=== PATIENT | female | born 1935 | race Caucasian/White ===

== ENCOUNTER → 2016-10-26 | Outpatient (CLI) | payer MEDICARE, BC ==
[2016-10-26 08:58] LABS: Appearance,Urine Clear (Clear); Bilirubin,Urine Negative (Negative); Glucose,Urine (UA) Negative (Negative); Ketones,Urine Negative (Negative); Leukocyte Esterase,Urine Negative (Negative); Nitrite,Urine Negative (Negative); PH, Urine 6.5 (5.0-8.0); Protein,Urine Trace (Negative); Specific Gravity,Urine 1.012 (1.001-1.035); UA Billing (MACRO vs. MICRO) CHEM; Urobilinogen,Urine <2.0 mg/dL (<2.0)
[2016-10-26 09:02] LABS: Basophils % (A) 1 %; CH 32.7; CHCM 33.6; Eosinophils # (A) 0.2 k/uL (0-0.7); Eosinophils % (A) 3 %; HCT 45.2 % (34.0-46.0); HDW 2.64; HGB 15.5 gm/dL (11.4-16.0); Luc # (Auto) 0.14; Luc % (Auto) 3; Lymphocytes # (A) 1.2 k/uL (1.0-4.8); Lymphocytes % (A) 22 %; MCH 33.5 pg (25.0-35.0); MCHC 34.2 g/dL (31.0-37.0); Mean Platelet Volume 6.7; Monocytes # (A) 0.4 k/uL (0-1.0); Monocytes % (A) 7 %; Neutrophils # (A) 3.6 k/uL (1.3-7.7); Neutrophils % (A) 66 %; RBC 4.61 m/uL (3.80-5.40); RDW 14.1 % (11.5-15.5); WBC 5.5 k/uL (3.8-10.6); WBC (Perox) 5.78
[2016-10-26 10:46] LABS: ALT 31 U/L (9-52); AST 20 U/L (14-36); Alkaline Phosphatase 70 U/L (38-126); Anion Gap 10 mmol/L; Blood Urea Nitrogen 21 mg/dL (7-17); Calcium 9.4 mg/dL (8.4-10.2); Carbon Dioxide 27 mmol/L (22-30); Chloride 101 mmol/L (98-107); Cholesterol 144 mg/dL (<200); Glucose 93 mg/dL (74-99); HDL Cholesterol 48 mg/dL (40-60); Non-African American GFR(MDRD) 53 (>60 ml/min/1.73 sqM); Potassium 4.6 mmol/L (3.5-5.1); Sodium 138 mmol/L (137-145); Total Bilirubin 0.7 mg/dL (0.2-1.3); Total Protein 6.9 g/dL (6.3-8.2)
[2016-10-26 11:32] LABS: Vitamin B12 774 pg/mL
== END | disposition home or self-care (01) ==
LOC: LABWHC1 08:33
PROVIDERS: ATTEND Internal Medicine
DX: E78.5 Hyperlipidemia, unspecified (principal); I10 Essential (primary) hypertension; R41.3 Other amnesia
CPT/HCPCS: 36415; 80053; 80061; 81003; 82607; 84443; 85025

== ENCOUNTER 2016-12-08 10:18 | Inpatient (IN) | payer MEDICARE, BC ==
[2016-12-08] MEDS ORDERED: DILTIAZEM 125 MG in SODIUM CHLORIDE 0.9% 100 ML IV ONE (10:50)
[2016-12-08] MEDS ORDERED: SODIUM CHLORIDE 0.9% 1,000 ML IV STA (10:50)
--- NOTE | 2016-12-08 10:53 | ED ---
General Adult HPI - General Chief complaint: Weakness Stated complaint: WEAKNESS, UNABLE TO EAT X 1 WEEK Time Seen by Provider: 12/08/16 10:32 Source: patient, family, RN notes reviewed Mode of arrival: wheelchair Limitations: physical limitation - History of Present Illness Initial comments: Patient is a pleasant 81-year-old female presenting to the emergency department with palpitations and generalized weakness. Symptoms have been present for several days. Patient is extremely fatigable and having difficulty walking more than a few feet. Patient has dyspnea with exertion only. No dyspnea at rest. No chest pain. Patient states she feels her heart is going rapidly. No isolated area of weakness. No confusion. Patient does have a history of palpitations once previously associated with atrial fibrillation years ago. - Related Data Home Medications Medication Instructions Recorded Confirmed Cholecalciferol [Vitamin D3] 1,000 unit PO DAILY 12/08/16 12/08/16 Lisinopril [Zestril] 20 mg PO DAILY 12/08/16 12/08/16 Pravastatin Sodium [Pravachol] 10 mg PO HS 12/08/16 12/08/16 Suvorexant [Belsomra] 15 mg PO Q48H 12/08/16 12/08/16 Venlafaxine HCl [Effexor XR] 75 mg PO DAILY 12/08/16 12/08/16 traZODone HCL 100 mg PO HS 12/08/16 12/08/16 Allergies Allergy/AdvReac Type Severity Reaction Status Date / Time No Known Allergies Allergy Verified 12/08/16 10:58 Review of Systems ROS Statement: Those systems with pertinent positive or pertinent negative responses have been documented in the HPI. ROS Other: All systems not noted in ROS Statement are negative. Constitutional: Denies: fever Eyes: Denies: eye pain ENT: Denies: ear pain Respiratory: Denies: cough Cardiovascular: Reports: palpitations. Denies: chest pain Endocrine: Reports: fatigue Gastrointestinal: Denies: abdominal pain Genitourinary: Denies: dysuria Musculoskeletal: Denies: back pain Skin: Denies: rash Neurological: Reports: weakness (Generalized) Past Medical History Past Medical History: Atrial Fibrillation, Hyperlipidemia, Hypertension History of Any Multi-Drug Resistant Organisms: None Reported Past Surgical History: Section, Hysterectomy Additional Past Surgical History / Comment(s): partial right foot amputation Past Psychological History: No Psychological Hx Reported Smoking Status: Former smoker Past Alcohol Use History: None Reported Past Drug Use History: None Reported General Exam Limitations: physical limitation General appearance: alert, in no apparent distress Head exam: Present: atraumatic Eye exam: Present: normal appearance, PERRL ENT exam: Present: normal oropharynx Neck exam: Present: normal inspection Respiratory exam: Present: normal lung sounds bilaterally Cardiovascular Exam: Present: tachycardia, irregular rhythm GI/Abdominal exam: Present: soft. Absent: tenderness Extremities exam: Present: normal inspection. Absent: pedal edema, calf tenderness Neurological exam: Present: alert, oriented X3, CN II-XII intact. Absent: motor sensory deficit Expanded Motor strength exam: RUE: 5, LUE: 5, RLE: 5, LLE: 5 Eye Response: (4) open spontaneously Motor Response: (6) obeys commands Verbal Response: (5) oriented Psychiatric exam: Present: normal affect, normal mood Skin exam: Present: normal color Course Vital Signs 12/08/16 12/08/16 12/08/16 10:22 10:38 11:00 Temperature 97.7 F Pulse Rate 124 H 124 H Pulse Rate [ 131 H Pulse Oximetery ] Respiratory 16 18 22 Rate Blood Pressure 118/85 100/74 O2 Sat by Pulse 98 92 L Oximetry 12/08/16 12/08/16 11:41 12:48 Temperature Pulse Rate 124 H 122 H Pulse Rate [ Pulse Oximetery ] Respiratory 18 18 Rate Blood Pressure 109/89 118/79 O2 Sat by Pulse 98 98 Oximetry EKG Findings - EKG Comments: EKG Findings:: A. fib with RVR, rate 117. QRS 80. QT 332. QTC 463. Poor R- wave progression. Nonspecific T waves. Medical Decision Making - Medical Decision Making Patient reevaluated and resting comfortably in bed. Patient has A. fib with RVR. Patient is on Cardizem drip. Heart rate remains between 101 and 1:15. Chest x-ray concerning for some congestive heart failure. BNP and echo will be added. Case was discussed with Dr. Borrego, who will admit for Dr. Carlos. He is covering for Dr. marquez. - Lab Data Result diagrams: 12/08/16 09:59 12/08/16 09:59 Lab Results 12/08/16 12/08/16 12/08/16 Range/Units 09:59 09:59 09:59 WBC 6.2 (3.8-10.6) k/uL RBC 4.53 (3.80-5.40) m/uL Hgb 14.8 (11.4-16.0) gm/dL Hct 47.1 H (34.0-46.0) % MCV 103.8 H D (80.0-100.0) fL MCH 32.7 (25.0-35.0) pg MCHC 31.5 (31.0-37.0) g/dL RDW 15.6 H (11.5-15.5) % Plt Count 247 (150-450) k/uL Neutrophils % 74 % Lymphocytes % 17 % Monocytes % 6 % Eosinophils % 1 % Basophils % 0 % Neutrophils # 4.6 (1.3-7.7) k/uL Lymphocytes # 1.1 (1.0-4.8) k/uL Monocytes # 0.4 (0-1.0) k/uL Eosinophils # 0.1 (0-0.7) k/uL Basophils # 0.0 (0-0.2) k/uL Macrocytosis Moderate PT (9.0-12.0) sec INR (<1.2) APTT (22.0-30.0) sec Sodium 136 L (137-145) mmol/L Potassium 4.7 (3.5-5.1) mmol/L Chloride 102 (98-107) mmol/L Carbon Dioxide 23 (22-30) mmol/L Anion Gap 11 mmol/L BUN 26 H (7-17) mg/dL Creatinine 0.96 (0.52-1.04) mg/dL Est GFR (MDRD) Af Amer >60 (>60 ml/min/1.73 sqM) Est GFR (MDRD) Non-Af 56 (>60 ml/min/1.73 sqM) Glucose 95 (74-99) mg/dL Calcium 9.2 (8.4-10.2) mg/dL Phosphorus 3.8 (2.5-4.5) mg/dL Magnesium 2.0 (1.6-2.3) mg/dL Total Bilirubin 0.9 (0.2-1.3) mg/dL AST 24 (14-36) U/L ALT 28 (9-52) U/L Alkaline Phosphatase 76 (38-126) U/L Total Creatine Kinase 39 (30-135) U/L CK-MB (CK-2) 1.5 (0.0-2.4) ng/mL CK-MB (CK-2) Rel Index 3.8 Troponin I 0.042 H* (0.000-0.034) ng/mL Total Protein 6.7 (6.3-8.2) g/dL Albumin 3.8 (3.5-5.0) g/dL TSH 1.260 (0.465-4.680) mIU/L Free T4 2.27 H (0.78-2.19) ng/dL Free T3 pg/mL 3.9 (2.8-5.3) pg/ml 12/08/16 Range/Units 09:59 WBC (3.8-10.6) k/uL RBC (3.80-5.40) m/uL Hgb (11.4-16.0) gm/dL Hct (34.0-46.0) % MCV (80.0-100.0) fL MCH (25.0-35.0) pg MCHC (31.0-37.0) g/dL RDW (11.5-15.5) % Plt Count (150-450) k/uL Neutrophils % % Lymphocytes % % Monocytes % % Eosinophils % % Basophils % % Neutrophils # (1.3-7.7) k/uL Lymphocytes # (1.0-4.8) k/uL Monocytes # (0-1.0) k/uL Eosinophils # (0-0.7) k/uL Basophils # (0-0.2) k/uL Macrocytosis PT 12.0 (9.0-12.0) sec INR 1.2 H (<1.2) APTT 22.5 (22.0-30.0) sec Sodium (137-145) mmol/L Potassium (3.5-5.1) mmol/L Chloride (98-107) mmol/L Carbon Dioxide (22-30) mmol/L Anion Gap mmol/L BUN (7-17) mg/dL Creatinine (0.52-1.04) mg/dL Est GFR (MDRD) Af Amer (>60 ml/min/1.73 sqM) Est GFR (MDRD) Non-Af (>60 ml/min/1.73 sqM) Glucose (74-99) mg/dL Calcium (8.4-10.2) mg/dL Phosphorus (2.5-4.5) mg/dL Magnesium (1.6-2.3) mg/dL Total Bilirubin (0.2-1.3) mg/dL AST (14-36) U/L ALT (9-52) U/L Alkaline Phosphatase (38-126) U/L Total Creatine Kinase (30-135) U/L CK-MB (CK-2) (0.0-2.4) ng/mL CK-MB (CK-2) Rel Index Troponin I (0.000-0.034) ng/mL Total Protein (6.3-8.2) g/dL Albumin (3.5-5.0) g/dL TSH (0.465-4.680) mIU/L Free T4 (0.78-2.19) ng/dL Free T3 pg/mL (2.8-5.3) pg/ml - Radiology Data Radiology results: image reviewed (Computed tomography scan of brain shows no acute abnormality. Atrophy. Chest x-ray shows vascular congestion.) Critical Care Time Critical Care Time: Yes Total Critical Care Time: 32 Disposition Clinical Impression: Atrial fibrillation with RVR, CHF (congestive heart failure) Disposition: ADMITTED IP TO THIS HOSP Referrals: Fortino Pena MD [Primary Care Provider] - 1-2 days Decision Time: 13:05
[2016-12-08 11:11] LABS: Basophils % (A) 0 %; CH 33.8; CHCM 32.9; Eosinophils # (A) 0.1 k/uL (0-0.7); Eosinophils % (A) 1 %; HCT 47.1 % (34.0-46.0); HDW 2.98; HGB 14.8 gm/dL (11.4-16.0); Luc # (Auto) 0.08; Luc % (Auto) 1; Lymphocytes # (A) 1.1 k/uL (1.0-4.8); Lymphocytes % (A) 17 %; MCH 32.7 pg (25.0-35.0); MCHC 31.5 g/dL (31.0-37.0); Macrocytosis Moderate; Mean Platelet Volume 7.7; Monocytes # (A) 0.4 k/uL (0-1.0); Monocytes % (A) 6 %; Neutrophils # (A) 4.6 k/uL (1.3-7.7); Neutrophils % (A) 74 %; RBC 4.53 m/uL (3.80-5.40); RDW 15.6 % (11.5-15.5); WBC 6.2 k/uL (3.8-10.6); WBC (Perox) 6.18
[2016-12-08 11:14] LABS: MCV 103.8 fL (80.0-100.0)
[2016-12-08 11:47] LABS: INR 1.2 (<1.2)
[2016-12-08 11:50] LABS: ALT 28 U/L (9-52); AST 24 U/L (14-36); Alkaline Phosphatase 76 U/L (38-126); Anion Gap 11 mmol/L; Blood Urea Nitrogen 26 mg/dL (7-17); Calcium 9.2 mg/dL (8.4-10.2); Carbon Dioxide 23 mmol/L (22-30); Chloride 102 mmol/L (98-107); Glucose 95 mg/dL (74-99); Non-African American GFR(MDRD) 56 (>60 ml/min/1.73 sqM); Phosphorous 3.8 mg/dL (2.5-4.5); Potassium 4.7 mmol/L (3.5-5.1); Sodium 136 mmol/L (137-145); Total Bilirubin 0.9 mg/dL (0.2-1.3); Total Protein 6.7 g/dL (6.3-8.2)
[2016-12-08 11:51] LABS: Creatine Kinase MB 1.5 ng/mL (0.0-2.4)
--- NOTE | 2016-12-08 11:53 | CT ---
EXAMINATION TYPE: CT brain wo con DATE OF EXAM: 12/08/2016 COMPARISON: NONE HISTORY: Weakness CT DLP: 1153 mGycm Automated exposure control for dose reduction was used. Helical imaging through the brain FINDINGS: There are cerebral vascular calcifications present. No hemorrhage or hydrocephalus. Cortical atrophy is likely age-related. Periventricular white matter shows patchy low attenuation. Calvarium is intact . Orbits are symmetric. Paranasal sinuses and mastoid air cells as visualized are normal. IMPRESSION: NO ACUTE ABNORMALITY. AGE-RELATED CHANGES OF ATROPHY AND PROBABLE CHRONIC SMALL VESSEL ISCHEMIA.
[2016-12-08 11:55] LABS: Partial Thromboplastin Time 22.5 sec (22.0-30.0)
[2016-12-08 11:59] LABS: Troponin I 0.042 ng/mL (0.000-0.034)
--- NOTE | 2016-12-08 12:54 | XR ---
EXAMINATION TYPE: XR chest 2V DATE OF EXAM: 12/08/2016 COMPARISON: 07/19/2011 HISTORY: Weakness, decreased appetite and atrial fibrillation. TECHNIQUE: Frontal and lateral views of the chest are obtained. FINDINGS: There is a small left and trace right pleural effusion with associated bibasilar airspace disease and linear left midlung atelectasis in combination with mild pulmonary vascular congestion. P ossible right upper lung surgical sutures are seen. Heart is enlarged and there is engorgement of the superior vena cava/azygos junction indicating volume overload. IMPRESSION: Nuclear vascular congestion, trace right pleural effusion, small left pleural effusion a nd progressed cardiomegaly indicative of underlying decompensated congestive heart failure.
[2016-12-08] MEDS ORDERED: ASPIRIN 325 MG TAB PO STA (13:05)
[2016-12-08] MEDS ORDERED: HEPARIN SODIUM,PORCINE 5,000 UNIT/ML 1 ML VIAL IV ONE (13:07)
[2016-12-08] MEDS ORDERED: HEPARIN SODIUM,PORCINE 5,000 UNIT/ML 1 ML VIAL IV PRN (13:07)
[2016-12-08] MEDS ORDERED: HEPARIN SODIUM,PORCINE/D5W PMX 25,000 UNIT in DEXTROSE/WATER 1 500ML.BAG IV SCH (13:15)
[2016-12-08] MEDS: FUROSEMIDE 10 MG/ML 4 ML VIAL IV SCH ×2 (13:31→23:42)
[2016-12-08 13:32] LABS: Appearance,Urine Clear (Clear); Bilirubin,Urine Negative (Negative); Glucose,Urine (UA) Negative (Negative); Ketones,Urine Trace (Negative); Leukocyte Esterase,Urine Trace (Negative); Mucus,Urine Rare /hpf; Nitrite,Urine Negative (Negative); PH, Urine 5.5 (5.0-8.0); Particle Count 2641; Protein,Urine Trace (Negative); RBC,Urine 3 /hpf (0-5); Specific Gravity,Urine 1.023 (1.001-1.035); Squamous Epithelial Cell,Urine 1 /hpf (0-4); UA Billing (MACRO vs. MICRO) MICRO; WBC,Urine 5 /hpf (0-5)
[2016-12-08 14:47] VITALS: BMI 27.2
[2016-12-08] MEDS ORDERED: DEXTROSE 5% IN WATER 100 ML with AMIODARONE 150 MG IV ONE (16:45)
--- NOTE | 2016-12-08 16:46 | ECHOF ---
Referral Reason:Heart Failure MEASUREMENTS -------- HEIGHT: 167.6 cm WEIGHT: 76.7 kg BP: 118/79 IVSd: 1.4 cm (0.6 - 1.1) LVIDd: 4.4 cm (3.9 - 5.3) LVPWd: 1.2 cm (0.6 - 1.1) LVIDs: 3.9 cm LA Diam: 3.8 cm (2.7 - 3.8) RVIDd: 3.0 cm (< 3.3) LAESV Index (A-L): 23.37 ml/m Ao Diam: 3.2 cm (2.0 - 3.7) AV Cusp: 1.8 cm (1.5 - 2.6) EPSS: 1.3 cm RAP: 15.00 mmHg RVSP: 53.88 mmHg MV EF SLOPE: 86.98 mm/s (70 - 150) MV EXCURSION: 16.96 mm (> 18.000) FINDINGS -------- Atrial fibrillation. This was a technically good study. The left ventricular size is normal. There is moderate concentric left ventricular hypertrophy. Overall left ventricular systolic function is severely impaired with, an EF between 20 - 25 %. The right ventricle is normal in size. Normal LA size by volume 22+/-6 ml/m2. The right atrium is normal in size. There is mild aortic valve sclerosis. There is mild aortic regurgitation. The mitral valve leaflets are mildly thickened. Mild mitral annular calcification present. Moderate mitral regurgitation is present. Moderate to severe tricuspid regurgitation present. There is moderate pulmonary hypertension. The right ventricular systolic pressure, as measured by Doppler, is 53.88mmHg. The pulmonic valve was not well visualized. The aortic root size is normal. The inferior vena cava is dilated with no significant inspiratory collapse which is consistent estimated right atrial pressure of >15 mmHg. There is no pericardial effusion. Small Pleural Effusion. CONCLUSIONS -------- 1. Atrial fibrillation. 2. There is mild aortic regurgitation. 3. The mitral valve leaflets are mildly thickened. 4. Mild mitral annular calcification present. 5. Moderate mitral regurgitation is present. 6. Moderate to severe tricuspid regurgitation present. 7. There is moderate pulmonary hypertension. 8. The right ventricular systolic pressure, as measured by Doppler, is 53.88mmHg. 9. The pulmonic valve was not well visualized. 10. The aortic root size is normal. 11. The inferior vena cava is dilated with no significant inspiratory collapse which is consistent estimated right atrial pressure of >15 mmHg. 12. This was a technically good study. 13. There is no pericardial effusion. 14. Small Pleural Effusion. 15. The left ventricular size is normal. 16. There is moderate concentric left ventricular hypertrophy. 17. Overall left ventricular systolic function is severely impaired with, an EF between 20 - 25 %. 18. The right ventricle is normal in size. 19. Normal LA size by volume 22+/-6 ml/m2. 20. The right atrium is normal in size. 21. There is mild aortic valve sclerosis. CURB WORKER: Britney Esteban RDCS
[2016-12-08] MEDS: AMIODARONE 450 MG in DEXTROSE 5% IN WATER 250 ML IV SCH ×2 (17:10)
[2016-12-08] MEDS: NITROGLYCERIN OINT 1 INCH/GM PACKET TOPICAL SCH ×2 (17:11→20:31)
[2016-12-08] MEDS ORDERED: FUROSEMIDE 10 MG/ML 4 ML VIAL IV STA (17:51)
[2016-12-08] MEDS ORDERED: MORPHINE SULFATE 2 MG/ML SYRINGE IVP STA (17:51)
[2016-12-08] MEDS: APIXABAN 5 MG TAB PO SCH (20:30)
[2016-12-08] MEDS: PRAVASTATIN SODIUM 20 MG TAB PO SCH (20:30)
[2016-12-08] MEDS: traZODone HCL 100 MG TAB PO SCH (20:31)
--- NOTE | 2016-12-08 21:59 | HP ---
HISTORY AND PHYSICAL CHIEF COMPLAINT: Weakness and shortness of breath. HISTORY OF PRESENT ILLNESS: This 81-year-old woman with a past history of multiple medical problems, including chest pain, history of hypertension, hyperlipidemia, history of hypothyroidism, bladder surgery, anxiety, depression being followed by Dr. Pena in the outpatient setting was admitted to [place] with multiple complex medical issues, including weakness and tiredness. Patient unable to the eat. Apparently, patient is fatigued. The patient was found to have features of atrial fibrillation as well as CHF on admission. Patient admitted for further evaluation. Amiodarone drip was initiated at this time. The patient is slightly drowsy, unable to give a coherent history. Most of the history is taken from my discussion with the staff as well as review of the chart at this time. PAST MEDICAL HISTORY: History of chest pain, history hypertension, hyperlipidemia, hypothyroidism, history irregular heartbeat, anxiety, depression. MEDICATIONS PRIOR TO ADMISSION: Include: 1. Effexor XR 75 mg p.o. daily .. 2. Belsomra 50 mg q.4 to 8 hours. 3. Trazodone 100 mg q.h.s. 4. Pravachol 10 mg q.h.s. 5. Zestril 20 mg daily. 6. Vitamin D3 1000 daily. ALLERGIES: None. FAMILY HISTORY: History of breast cancer in the family. SOCIAL HISTORY: Previous history of smoking. No history of current smoking or alcohol intake. REVIEW OF SYSTEMS: ENT: No diminished hearing, diminished vision. CARDIOVASCULAR: As mentioned earlier. RESPIRATORY: As mentioned earlier. GI: No nausea, vomiting. : No dysuria. NERVOUS: No numbness. Generalized weakness. ALLERGY/IMMUNOLOGY: No asthma. MUSCULOSKELETAL: As mentioned earlier. HEMATOLOGY/ONCOLOGY: No history of anemia. ENDOCRINE: As mentioned earlier. CONSTITUTIONAL: As mentioned earlier. DERMATOLOGY: Negative. RHEUMATOLOGY: Negative. PSYCHIATRY: As mentioned earlier. PHYSICAL EXAM: The pulse is 102, blood pressure 118/80, respirations 18, temp is normal, pulse ox 98% on 3L. HEENT: Conjunctivae normal. Oral mucosa moist. NECK: No jugular venous distention. No carotid bruits. No lymph node enlargement. CARDIOVASCULAR: S1, S2 muffled, irregular. RESPIRATORY: Breath sounds diminished in the bases. Bilateral scattered rhonchi and crackles. ABDOMEN: Soft, nontender. No mass palpable. LEGS: No edema. No swelling. NERVOUS SYSTEM: Higher functions as mentioned earlier. Moves all 4 limbs. No focal motor or sensory deficits. LYMPHATIC: No lymphadenopathy in neck or axillae. SKIN: No ulcers, rash or bleeding. LAB STUDIES: MCV 103.8, INR is 1.2. Sodium 136. The chest x-ray: Evidence of pleural effusion and CHF. ASSESSMENT: 1. Congestive heart failure acute exacerbation, ejection fraction 20% to 25% with acute on chronic systolic dysfunction. 2. Atrial fibrillation with a fast ventricular rate. 3. Hypertension. 4. Hyperlipidemia. 5. History of atrial fibrillation. 6. History of cystitis. 7. History of cholecystectomy. 8. Anxiety, depression. 9. Troponin indeterminate at 0.042. 10.NT-proBNP 7620. RECOMMENDATIONS AND DISCUSSION: In this 81-year-old woman who presented with multiple complex medical issues, will monitor the patient closely. Continue with the current management and continue symptomatic treatment. Will initiate Lasix, IV heparin drip. Cardiology consultation. Two-D echo reviewed. The patient is started on Eliquis already. Otherwise, I would also recommend the patient is also on amiodarone drip. Symptomatic treatment will be provided. The patient also had a sick euthyroid syndrome. We will continue to monitor. Prognosis guarded because of multiple complex medical issues. Discussed with the patient. Further recommendations to follow. A copy of this dictation will be forwarded to Dr. Pena, who is the primary physician. I would also recommend PT/OT evaluation once the patient is stabilized. Home medications will be continued. MMODL / IJN: [id number] /
[2016-12-09] MEDS: AMIODARONE 450 MG in DEXTROSE 5% IN WATER 250 ML IV SCH ×6 (00:24→16:12)
[2016-12-09 03:17] LABS: Basophils % (A) 1 %; CH 32.7; CHCM 32.3; Eosinophils # (A) 0.1 k/uL (0-0.7); Eosinophils % (A) 1 %; HCT 41.3 % (34.0-46.0); HDW 2.99; HGB 13.2 gm/dL (11.4-16.0); Hypochromasia Slight; Luc # (Auto) 0.12; Luc % (Auto) 2; Lymphocytes # (A) 1.3 k/uL (1.0-4.8); Lymphocytes % (A) 22 %; MCH 32.7 pg (25.0-35.0); MCHC 32.1 g/dL (31.0-37.0); Macrocytosis Slight; Mean Platelet Volume 7.2; Monocytes # (A) 0.4 k/uL (0-1.0); Monocytes % (A) 6 %; Neutrophils # (A) 4.1 k/uL (1.3-7.7); Neutrophils % (A) 68 %; RBC 4.04 m/uL (3.80-5.40); RDW 14.7 % (11.5-15.5)
[2016-12-09] MEDS: CARVEDILOL 6.25 MG TAB PO SCH ×2 (06:33→17:11)
[2016-12-09] MEDS: ONDANSETRON 4 MG/2 ML VIAL IVP PRN ×3 (08:44→21:04)
[2016-12-09] MEDS ORDERED: LISINOPRIL 10 MG TAB PO SCH (09:00)
[2016-12-09] MEDS: NITROGLYCERIN OINT 1 INCH/GM PACKET TOPICAL SCH ×5 (09:17→21:07)
[2016-12-09] MEDS: CHOLECALCIFEROL 1,000 UNIT TAB PO SCH (09:18)
[2016-12-09] MEDS: VENLAFAXINE HCL ER 75 MG CAP PO SCH (09:18)
[2016-12-09] MEDS: APIXABAN 5 MG TAB PO SCH ×2 (09:18→21:05)
[2016-12-09] MEDS: SPIRONOLACTONE 25 MG TAB PO SCH (12:55)
[2016-12-09] MEDS ORDERED: ASPIRIN 325 MG TAB PO SCH (13:06)
--- NOTE | 2016-12-09 13:36 | CONS ---
CONSULTATION Mrs. Luo is and 81-year-old female, who is seen for cardiac evaluation. Patient's medical records were reviewed. This patient has a history of hypertension, hyperlipidemia, and hypothyroidism and has been followed by Dr. Pena as an outpatient. The patient came to the hospital with a complaint of shortness of breath and weakness, unable to eat for last few days. She did not had any fever or chills. The patient was found to be in congestive heart failure and atrial fibrillation with a rapid ventricular response. There is no definite prior history of myocardial infarction or atrial fibrillation. The patient has been physically and functionally independent for prior to the few days coming to the hospital. There is no previous history of congestive cardiac failure. PAST MEDICAL HISTORY: Past medical history includes history of hypertension, hyperlipidemia, anxiety. HOME MEDICATIONS: Include: 1. Effexor. 2. Trazodone. 3. Pravachol 10 mg. 4. Zestril 20 mg daily. FAMILY HISTORY: Unremarkable. REVIEW OF SYMPTOMS: Review of the system is otherwise unremarkable. PHYSICAL EXAMINATION: At present reveals 81-year-old female, who is still mildly short of breath and feeling nauseated. Patient is afebrile. Oxygen saturation is 95%. The patient's blood pressure is 100/60 mmHg. HEENT examination is negative. NECK: Supple. Jugular venous pressure is elevated. Both the carotid pulses are felt. There is no bruit. Chest is symmetrical. Heart the PMI is not felt. First and second heart sounds are normal. Lungs examination reveals few basal rales. ABDOMEN: Soft. Extremities there is a 1 to 2+ edema. EKG initially showed atrial fibrillation with moderately rapid ventricular response. Chest x-ray was suggestive of congestive cardiac failure. The patient's BNP level was 7620. Patient's free T4 was 2.27. The TSH was 1.260. The patient's echocardiogram reveals severe degree of global hypokinesia with severely impaired left ventricular systolic function. IMPRESSION: This patient has presented with a congestive cardiac failure. Patient has atrial fibrillation with moderately rapid ventricular response. Echocardiogram reveals a severely impaired left ventricular systolic function. RECOMMENDATIONS: At present, the patient was started on IV amiodarone drip to control the ventricular rate. We will continue IV Lasix 40 mg IV q.12h. The patient has been diuresing well. We will hold off the Zestril for next 36 hours and then start the patient on Entresto. The patient's overall prognosis is guarded. Patient is started on apixaban 5 mg b.i.d. Thank you for the consultation. CARLITOS / RANJIT: [id number] /
[2016-12-09] MEDS: FUROSEMIDE 10 MG/ML 4 ML VIAL IV SCH (15:16)
[2016-12-09] MEDS: AMIODARONE 200 MG TAB PO SCH ×2 (17:11→21:07)
--- NOTE | 2016-12-09 17:39 | PN ---
PROGRESS NOTE DATE OF SERVICE: 12/09/2016 This 81-year-old woman is admitted with weakness and shortness of breath, had CHF and as well as atrial fibrillation. The patient's ejection fraction is very low possibly indicating cardiomyopathy as well. Patient is on IV Lasix. The patient also on Amiodarone. PAST MEDICAL HISTORY: Reviewed. REVIEW OF SYSTEMS: CARDIOVASCULAR: No angina. RESPIRATORY: As mentioned earlier. GI: No nausea. : No dysuria. NERVOUS SYSTEM: No numbness weakness. CURRENT MEDICATIONS: Reviewed and include 1. Amiodarone 200 mg t.i.d. 2. Eliquis 5 mg p.o. b.i.d. 3. Coreg. 4. Lasix. 5. Nitro-Bid. 6. Pravachol. 7. Aldactone. 8. Desyrel. 9. Effexor. PHYSICAL EXAM: Patient is alert, oriented x2. Pulse 95, blood pressure 95/67, respiration 18, temperature 97.4, pulse ox 95% on 3 L. HEENT: Conjunctivae normal. Oral mucosa moist. NECK: No jugular venous distention. No carotid bruit. No lymph node enlargement. CARDIOVASCULAR: S1, S2. No S3, no S4. RESPIRATORY: Breath sounds diminished in the bases. A few scattered rhonchi and crackles. Expiratory wheezing also present. ABDOMEN: Soft, obese, nontender. LEGS: Minimal bilateral leg edema. NERVOUS SYSTEM: Higher functions as mentioned earlier. Moves all four limbs. No focal deficits. LYMPHATICS: No lymphadenopathy in the neck, axillae or groin. SKIN: No ulcer, rash or bleeding. LAB: WBC 6.6, hemoglobin 13.2, MCV 102, troponin 0.041. UA noted. ASSESSMENT: 1. Congestive heart failure acute exacerbation with acute on chronic systolic dysfunction, ejection fraction 20 to 25% with possible cardiomyopathy. 2. Atrial fibrillation with fast ventricular rate. 3. Hypertension. 4. Hyperlipidemia. 5. History of atrial fibrillation. 6. History of cystitis. 7. History cholecystitis. 8. Anxiety and depression. 9. Troponin indeterminate 0.042. 10.Elevated NT proBNP. RECOMMENDATIONS AND DISCUSSION: In this 81-year-old woman who presented with multiple complex medical issues, will monitor the patient closely. Continue the current medications, continue current medical treatment, continue with Amiodarone and Eliquis as initiated. I would also recommend increased ambulation along with PT/OT also. The prognosis is guarded because of multiple complex medical issues and further recommendations to follow. See orders for details. MMODL / IJN: [id number] / SANDRA
[2016-12-09] MEDS ORDERED: Acetaminophen-Codeine 300-30mg TAB PO PRN (18:31)
[2016-12-09] MEDS ORDERED: ACETAMINOPHEN TAB 325 MG TAB PO PRN (18:31)
[2016-12-09] MEDS: traZODone HCL 100 MG TAB PO SCH (21:06)
[2016-12-09] MEDS: PRAVASTATIN SODIUM 20 MG TAB PO SCH (21:06)
[2016-12-09] MEDS: PANTOPRAZOLE 40 MG/10 ML VIAL IVP SCH (21:09)
[2016-12-10] MEDS: FUROSEMIDE 10 MG/ML 4 ML VIAL IV SCH ×2 (01:33→12:33)
[2016-12-10 06:01] LABS: Basophils % (A) 1 %; CH 34.1; CHCM 33.1; Eosinophils # (A) 0.1 k/uL (0-0.7); Eosinophils % (A) 2 %; HDW 2.97; HGB 13.5 gm/dL (11.4-16.0); Luc # (Auto) 0.08; Luc % (Auto) 1; Lymphocytes # (A) 1.2 k/uL (1.0-4.8); Lymphocytes % (A) 20 %; MCH 32.8 pg (25.0-35.0); MCHC 31.5 g/dL (31.0-37.0); Macrocytosis Moderate; Mean Platelet Volume 7.5; Monocytes # (A) 0.4 k/uL (0-1.0); Monocytes % (A) 7 %; Neutrophils # (A) 4.2 k/uL (1.3-7.7); Neutrophils % (A) 69 %; RBC 4.13 m/uL (3.80-5.40); RDW 15.6 % (11.5-15.5); WBC (Perox) 6.82
[2016-12-10] MEDS: CARVEDILOL 6.25 MG TAB PO SCH ×2 (06:42→17:34)
--- NOTE | 2016-12-10 07:40 | XR ---
EXAMINATION TYPE: XR chest 1V DATE OF EXAM: 12/10/2016 HISTORY: chf. REFERENCE: Previous study dated 12/08/2016. FINDINGS: The heart is enlarged. Vascular congestion has improved. Interstitial change has improved. There continue to be small, bilateral effusions. IMPRESSION: IMPROVING CHANGES OF CONGESTIVE HEART FAILURE.
[2016-12-10] MEDS: NITROGLYCERIN OINT 1 INCH/GM PACKET TOPICAL SCH ×4 (08:15→22:52)
[2016-12-10] MEDS: APIXABAN 5 MG TAB PO SCH ×2 (08:15→20:40)
[2016-12-10] MEDS: AMIODARONE 200 MG TAB PO SCH ×3 (08:15→22:52)
[2016-12-10] MEDS: VENLAFAXINE HCL ER 75 MG CAP PO SCH (08:16)
[2016-12-10] MEDS: CHOLECALCIFEROL 1,000 UNIT TAB PO SCH (08:16)
[2016-12-10] MEDS: PANTOPRAZOLE 40 MG/10 ML VIAL IVP SCH ×2 (08:16→20:40)
[2016-12-10] MEDS: SPIRONOLACTONE 25 MG TAB PO SCH (08:16)
[2016-12-10 09:03] LABS: Calcium 8.5 mg/dL (8.4-10.2)
--- NOTE | 2016-12-10 14:31 | PN ---
PROGRESS NOTE This patient was admitted with atrial fibrillation and rapid ventricular response. She is feeling better. She is feeling tired but denies any orthopnea or PND. PHYSICAL EXAMINATION: Patient is afebrile. Heart rate is 90 per minute, respirations are not labored. Blood pressure is 110/78 mmHg. First and second heart sounds are normal. Lungs are fairly clear to auscultation and percussion. Chest x-ray shows improvement in the congestive heart failure. Patient's creatinine is increased to 1.69. We will DC IV Lasix 40 mg b.i.d. today and then start 20 mg IV b.i.d. from tomorrow. Once the patient's creatinine is stabilized, we will start the patient on Entresto. MMODL / IJN: [id number] /
--- NOTE | 2016-12-10 15:37 | PN ---
PROGRESS NOTE DATE OF SERVICE: 12/10/2016. INTERVAL HISTORY: This 81-year-old woman who was admitted with CHF acute exacerbation with acute on chronic systolic dysfunction, is being closely monitored. The patient has complaints of tiredness and weakness. No chest pain. No palpitations. No fever. The most recent chest x-ray done today showed improving changes of heart failure. EXAM: Alert, oriented x3. Pulse is 97, blood pressure 107/76, respiratory 20, temperature 96.4, pulse ox 99% on 3 L. HEENT: Conjunctivae normal. NECK: No jugular venous distention. Cardiovascular: S1, S2 muffled. Respiratory: Breath sounds diminished in the bases. A few scattered rhonchi and crackles. Abdomen is soft, nontender. Legs: No edema. Central nervous system: No focal deficits. LABS: Hemoglobin 13.5, sodium 135, troponin noted. ASSESSMENT: 1. Congestive heart failure acute exacerbation with acute on chronic systolic dysfunction, ejection fraction 20 to 25% with possible cardiomyopathy. 2. Atrial fibrillation with fast ventricular rate. Present on admission. 3. Hypertension. 4. Hyperlipidemia. 5. History of atrial fibrillation. 6. History of cystitis. 7. History of cholecystitis. 8. History of anxiety and depression. 9. Troponin indeterminate at 0.042. 10.Elevated NT proBNP. RECOMMENDATIONS AND DISCUSSION: Recommend to continue current medications. Management. Continue the diuretics. Monitor closely. Closely follow with Cardiology. The patient is also on amiodarone for rate control t.i.d., Eliquis 5 mg p.o. b.i.d. has been started. See orders for further details. Guarded prognosis. Further recommendations to follow. MMODL / IJN: [id number] /
[2016-12-10] MEDS: ONDANSETRON 4 MG/2 ML VIAL IVP PRN (19:28)
[2016-12-10] MEDS: PRAVASTATIN SODIUM 20 MG TAB PO SCH (20:38)
[2016-12-10] MEDS: traZODone HCL 100 MG TAB PO SCH (20:40)
[2016-12-11] MEDS: AMIODARONE 200 MG TAB PO SCH ×4 (00:17→21:29)
[2016-12-11] MEDS: ONDANSETRON 4 MG/2 ML VIAL IVP PRN ×2 (06:29→17:54)
[2016-12-11] MEDS: CARVEDILOL 6.25 MG TAB PO SCH ×2 (07:07→16:02)
[2016-12-11 08:07] LABS: Basophils % (A) 1 %; CH 32.6; CHCM 32.5; Eosinophils # (A) 0.2 k/uL (0-0.7); Eosinophils % (A) 3 %; HCT 41.4 % (34.0-46.0); HDW 2.98; HGB 13.2 gm/dL (11.4-16.0); Hypochromasia Slight; Luc # (Auto) 0.15; Luc % (Auto) 3; Lymphocytes # (A) 1.3 k/uL (1.0-4.8); Lymphocytes % (A) 22 %; MCH 32.2 pg (25.0-35.0); MCHC 31.8 g/dL (31.0-37.0); MCV 101.1 fL (80.0-100.0); Macrocytosis Slight; Mean Platelet Volume 7.7; Monocytes # (A) 0.4 k/uL (0-1.0); Monocytes % (A) 7 %; Neutrophils # (A) 3.9 k/uL (1.3-7.7); Neutrophils % (A) 65 %; RDW 14.6 % (11.5-15.5); WBC 5.9 k/uL (3.8-10.6); WBC (Perox) 5.98
[2016-12-11] MEDS: SPIRONOLACTONE 25 MG TAB PO SCH (08:12)
[2016-12-11] MEDS: PANTOPRAZOLE 40 MG/10 ML VIAL IVP SCH (08:12)
[2016-12-11] MEDS: VENLAFAXINE HCL ER 75 MG CAP PO SCH (08:12)
[2016-12-11] MEDS: APIXABAN 5 MG TAB PO SCH ×2 (08:12→20:36)
[2016-12-11] MEDS: NITROGLYCERIN OINT 1 INCH/GM PACKET TOPICAL SCH ×2 (08:12→11:23)
[2016-12-11] MEDS: CHOLECALCIFEROL 1,000 UNIT TAB PO SCH (08:13)
[2016-12-11] MEDS ORDERED: METOCLOPRAMIDE 5 MG/ML 2 ML VIAL ONE (10:24)
[2016-12-11] MEDS ORDERED: METOCLOPRAMIDE 5 MG/ML 2 ML VIAL IVP STA (11:03)
[2016-12-11 12:40] LABS: Calcium 8.7 mg/dL (8.4-10.2); Potassium 4.3 mmol/L (3.5-5.1)
--- NOTE | 2016-12-11 14:34 | PN ---
PROGRESS NOTE Mrs. Luo is an 81-year-old female, who was admitted with atrial fibrillation, RVR. Patient has a severely impaired left ventricular systolic function. Patient has been started on amiodarone. She is feeling slightly nauseated which could be secondary to amiodarone but she is feeling better after the Reglan. She denies any shortness of breath. Patient is afebrile, heart rate is in the range of 80 to 90 per minute, respirations are not labored. Blood pressure is 111/75 mmHg. There is no evidence of any leg edema. The chest x-ray done showed improving changes of the congestive cardiac failure. Patient's creatinine is increased up to 2.02. We will discontinue the IV Lasix and follow the creatinine. MMODL / IJN: [id number] /
--- NOTE | 2016-12-11 15:37 | P.PN ---
Progress Note - Text Progress Note Date: 12/11/16 DATE OF SERVICE: 12/11/2016 PRESENTING COMPLAINT: weakness and shortness of breath HISTORY OF PRESENT ILLNESS: 81-year-old female presented with weakness and shortness of breath, unable to eat fatigued diagnostic testing revealed atrial fibrillation, as well as CHF. Admitted for the same. Cardiology consulted, echocardiogram completed,IV amiodarone, Lasix, entresto initiated. INTERVAL HISTORY: 12/11/2016: patient seen in follow-up, lying in bed appears pale, complaining of nausea. Amiodarone initiated today and likely nauseated because of that. Remains in A. fib rate controlled. Chest x-ray shows improving changes of congestive heart failure. Patient's appetite low today. Last BM prior to admission. anticoagulation needs will be met with Apixaban 5 mg twice a day. REVIEW OF SYSTEMS: Done for constitutional ,cardiovascular, GI, pulmonary with relevant findings as above. CURRENT MEDICATIONS Tylenol No. 3,amiodarone 200 mg by mouth 3 times a day, Apixaban 5 mg by mouth twice a day, Coreg 6.25 mg by mouth twice a day,Aldactone 25 mg by mouth daily, EffexorXR, 75 mg by mouth daily PHYSICAL EXAM VITAL SIGNS: temperature 97.7, pulse 65, respiratory rate 18, blood pressure 98/70, oxygen saturation 98% on 2 L. GENERAL APPEARANCE: Lying in bed, anxious appearing. EYES: Pupils equal. Conjunctiva normal. NECK: JVD not raised. Mass not palpable. RESPIRATORY: Respiratory effort normal. Lungs clear to auscultation. CARDIOVASCULAR: irregular rhythml. No edema. ABDOMEN: Soft. Liver and spleen not palpable. No tenderness. No mass palpable. PSYCHIATRY: Alert and oriented x3. Mood and affect anxious appearingl. INVESTIGATIONS: sodium 133, chloride 95, BUN 43, creatinine 2.02 ASSESSMENT: -acute on chronic congestive heart failure exacerbation from systolic dysfunction, ejection fraction 20-25% from hypertensive heart disease -hypertensive heart disease. -Moderate secondary pulmonary hypertension from congestive heart failure. -Moderate to severe tricuspid regurgitation nonrheumatic. -Moderate mitral regurgitation nonrheumatic. -Persistent atrial fibrillation, rate controlled -Hyperlipidemia. -Essential hypertension. -Chronic sciatica. -Anxiety and depression otherwise specified. -Acute renal failure from diuresis from IV Lasix. PLAN: IV Lasix stopped today, amiodarone continues,anticoagulation needs being met with Apixaban 5 mg by mouth twice a day,once creatinine has stabilized patient will be initiated on entresto. Plan of care discussed with the patient at the bedside she is in agreement. We will follow closely. [employer] CONSULTANT statement: Patient was seen and examined by nurse practitioner Cherelle Morgan and all elements of the case discussed with attending Dr. Ye
--- NOTE | 2016-12-11 18:23 | PN ---
PROGRESS NOTE ATTENDING NOTE: This patient was seen and examined by me. I discussed the case with my nurse practitioner, Cathy. Patient was admitted with CHF and atrial fibrillation. Tired. Has been to bedside commode. Having some amount of nausea. CURRENT MEDICATIONS: Current medications include: 1. Amiodarone. 2. Eliquis. 3. Coreg. 4. Aldactone. PHYSICAL EXAMINATION: Temperature 97.5, pulse 87, respiration 18, blood pressure 111/75, pulse ox 97% on 2 L. CARDIOVASCULAR: Heart sounds irregular. LUNGS: Fair air entry. Minimal edema. Tired-appearing. INVESTIGATIONS: White count 5.9, potassium 4.3, BUN 43, creatinine 2.02. Two-D echo shows EF of 20% to 25%. ASSESSMENT: 1. Acute on chronic congestive heart failure exacerbation from systolic dysfunction, ejection fraction 20% to 25%, from hypertensive heart disease. 2. Hypertensive heart disease. 3. Moderate secondary pulmonary hypertension from congestive heart failure. 4. Moderate to severe tricuspid regurgitation, non-rheumatic. 5. Moderate mitral regurgitation, non-rheumatic. 6. Persistent atrial fibrillation. 7. Hyperlipidemia. 8. Essential hypertension. 9. Chronic sciatica. 10.Anxiety and depression not otherwise specified. 11.Acute renal failure from diuresis from IV Lasix. PLAN: Care was discussed with the patient. The nausea could also be from the codeine part of Tylenol. Amiodarone is also possible. Will keep a close eye on patient's renal function. The patient is on Aldactone. Follow closely. Repeat electrolytes in the morning. MMODL / IJN: [id number] /
[2016-12-11] MEDS: PRAVASTATIN SODIUM 20 MG TAB PO SCH (20:36)
[2016-12-11] MEDS: traZODone HCL 100 MG TAB PO SCH (20:36)
[2016-12-11] MEDS: FAMOTIDINE 20 MG TAB PO SCH (20:38)
[2016-12-11] MEDS ORDERED: FUROSEMIDE 10 MG/ML 2 ML VIAL IV SCH (21:00)
[2016-12-12] MEDS: CARVEDILOL 6.25 MG TAB PO SCH ×2 (06:41→17:33)
[2016-12-12 07:13] LABS: Potassium 5.2 mmol/L (3.5-5.1)
[2016-12-12 07:37] LABS: Basophils % (A) 1 %; CH 33.2; CHCM 32.5; Eosinophils # (A) 0.2 k/uL (0-0.7); Eosinophils % (A) 3 %; HCT 45.5 % (34.0-46.0); HDW 2.93; HGB 14.6 gm/dL (11.4-16.0); Luc # (Auto) 0.19; Luc % (Auto) 3; Lymphocytes # (A) 1.4 k/uL (1.0-4.8); Lymphocytes % (A) 24 %; MCH 33.1 pg (25.0-35.0); MCHC 32.2 g/dL (31.0-37.0); MCV 102.9 fL (80.0-100.0); Macrocytosis Slight; Mean Platelet Volume 7.3; Monocytes # (A) 0.4 k/uL (0-1.0); Monocytes % (A) 7 %; Neutrophils # (A) 3.8 k/uL (1.3-7.7); Neutrophils % (A) 63 %; RBC 4.42 m/uL (3.80-5.40); RDW 14.5 % (11.5-15.5); WBC 6.1 k/uL (3.8-10.6); WBC (Perox) 5.75
[2016-12-12] MEDS: VENLAFAXINE HCL ER 75 MG CAP PO SCH (08:43)
[2016-12-12] MEDS: AMIODARONE 200 MG TAB PO SCH ×3 (08:43→21:10)
[2016-12-12] MEDS: FAMOTIDINE 20 MG TAB PO SCH (08:43)
[2016-12-12] MEDS: APIXABAN 5 MG TAB PO SCH (08:43)
[2016-12-12] MEDS: CHOLECALCIFEROL 1,000 UNIT TAB PO SCH (08:44)
[2016-12-12] MEDS: SPIRONOLACTONE 25 MG TAB PO SCH (08:44)
[2016-12-12] MEDS: ONDANSETRON 4 MG/2 ML VIAL IVP PRN ×2 (08:44→15:02)
--- NOTE | 2016-12-12 13:04 | P.PN ---
Progress Note - Text Progress Note Date: 12/12/16 DATE OF SERVICE: 12/12/2016 PRESENTING COMPLAINT: weakness and shortness of breath HISTORY OF PRESENT ILLNESS: 81-year-old female presented with weakness and shortness of breath, unable to eat fatigued diagnostic testing revealed atrial fibrillation, as well as CHF. Admitted for the same. Cardiology consulted, echocardiogram completed,IV amiodarone, Lasix. INTERVAL HISTORY: 12/12/2016: Patient seen in follow-up, sitting up in a chair at the bedside appears pale complaining of nausea. Remains on amiodarone, atrial fibrillation continues rate controlled. Anticoagulation needs are being met with Eliquis. Await additional input from cardiology. Tolerating about 20% of her diet, up with assistance. Last BM prior to admission. Cathartics added. 12/11/2016: patient seen in follow-up, lying in bed appears pale, complaining of nausea. Amiodarone initiated today and likely nauseated because of that. Remains in A. fib rate controlled. Chest x-ray shows improving changes of congestive heart failure. Patient's appetite low today. Last BM prior to admission. anticoagulation needs will be met with Apixaban 5 mg twice a day. REVIEW OF SYSTEMS: Done for constitutional ,cardiovascular, GI, pulmonary with relevant findings as above. CURRENT MEDICATIONS Tylenol No. 3,amiodarone 200 mg by mouth 3 times a day, Apixaban 2.5 mg by mouth twice a day, Coreg 6.25 mg by mouth twice a day,Aldactone 25 mg by mouth daily, trazodone 100 mg by mouth at bedtime, EffexorXR, 75 mg by mouth daily PHYSICAL EXAM VITAL SIGNS: Temperature 97.7, pulse 86, respirations 18, blood pressure 99/68, oxygen saturation 98% on 2 L GENERAL APPEARANCE: Sitting up in a chair, nauseated, anxious appearing. EYES: Pupils equal. Conjunctiva normal. NECK: JVD not raised. Mass not palpable. RESPIRATORY: Respiratory effort normal. Lungs clear to auscultation. CARDIOVASCULAR: irregular rhythml. No edema. ABDOMEN: Soft. Liver and spleen not palpable. No tenderness. No mass palpable. PSYCHIATRY: Alert and oriented x3. Mood and affect anxious appearing. INVESTIGATIONS: Sodium 133, potassium 5.2, BUN 45, creatinine 1.88 ASSESSMENT: -acute on chronic congestive heart failure exacerbation from systolic dysfunction, ejection fraction 20-25% from hypertensive heart disease -hypertensive heart disease. -Moderate secondary pulmonary hypertension from congestive heart failure. -Moderate to severe tricuspid regurgitation nonrheumatic. -Moderate mitral regurgitation nonrheumatic. -Persistent atrial fibrillation, rate controlled -Hyponatremia, likely hypoosmolar, from decreased oral intake -Hyperkalemia likely due to acute renal failure -Hyperlipidemia. -Essential hypertension. -Chronic sciatica. -Anxiety and depression otherwise specified. -Acute renal failure from diuresis from IV Lasix, improving PLAN: Amiodarone continues,anticoagulation needs being met with Apixaban 2.5 mg by mouth twice a day,once creatinine has stabilized patient will be initiated on entresto. Monitor daily labs. Plan of care discussed with the patient at the bedside she is in agreement. We will follow closely. [employer] MACHINE FEEDER statement: Patient was seen and examined by nurse practitioner Cherelle Morgan and all elements of the case discussed with attending Dr. Ye
--- NOTE | 2016-12-12 14:51 | PN ---
PROGRESS NOTE This patient is admitted with atrial fibrillation and congestive cardiac failure. She is getting stronger, her nausea is improved. She tolerated her lunch well today. Blood pressure is 110/82 mmHg. Oxygen saturation is 98%. Respirations are not labored. First and second heart sounds are normal. Lungs are fairly clear to auscultation and percussion. Patient's weight remains about the same. We will repeat that BMP tomorrow. If creatinine is stable, we will resume her p.o. Lasix. MMGERMAINL / IJN: [id number] /
[2016-12-12] MEDS: SENNOSIDES-DOCUSATE SODIUM 1 EACH TAB PO SCH ×2 (15:56→21:09)
[2016-12-12] MEDS: PANTOPRAZOLE 40 MG TABLET PO SCH ×2 (15:56→17:17)
[2016-12-12] MEDS: APIXABAN 2.5 MG TABLET PO SCH (21:05)
[2016-12-12] MEDS: PRAVASTATIN SODIUM 20 MG TAB PO SCH (21:05)
[2016-12-12] MEDS: traZODone HCL 100 MG TAB PO SCH (21:10)
--- NOTE | 2016-12-12 21:33 | PN ---
PROGRESS NOTE DATE OF SERVICE: December 12, 2016. ATTENDING NOTE: Patient was seen and examined by me. I discussed with my nurse practitioner, Ms. Morgan. The patient is sitting up, more awake today. Less nauseated. Did eat a little bit. Intermittent atrial fibrillation, rate controlled. PHYSICAL EXAMINATION: On examination, irregular heartbeat. Lungs decreased breath sounds. Psych AO x3. BUN 45, creatinine 1.88. ASSESSMENT: 1. Acute congestive heart failure from systolic dysfunction, EF 20-25% improving. 2. Acute renal failure from diuresis from IV Lasix, slowly improving. PLAN: The patient is on Eliquis for anticoagulation. Lasix has been held depending on creatinine. Cardiology may decide to put the p.o. Lasix back on board. MMODL / IJN: [id number] /
[2016-12-13] MEDS: ONDANSETRON 4 MG/2 ML VIAL IVP PRN (02:37)
[2016-12-13 06:30] LABS: Calcium 8.8 mg/dL (8.4-10.2); Potassium 4.3 mmol/L (3.5-5.1)
[2016-12-13] MEDS: PANTOPRAZOLE 40 MG TABLET PO SCH ×2 (06:31→16:20)
[2016-12-13] MEDS: CARVEDILOL 6.25 MG TAB PO SCH ×2 (06:31→16:20)
[2016-12-13 06:45] LABS: CH 34.2; CHCM 32.8; HCT 43.8 % (34.0-46.0); HDW 2.94; MCH 33.5 pg (25.0-35.0); MCHC 31.9 g/dL (31.0-37.0); Macrocytosis Moderate; Mean Platelet Volume 8.3; RBC 4.17 m/uL (3.80-5.40); RDW 15.5 % (11.5-15.5); WBC 7.3 k/uL (3.8-10.6); WBC (Perox) 7.08
[2016-12-13 07:26] LABS: Add Differential Manual Differential
[2016-12-13 07:29] LABS: Band Neutrophils % 2 %; Nucleated Red Blood Cells 0 /100 WBC (0-0); Total Cells Counted 100
[2016-12-13 07:32] LABS: Large Platelets Present
[2016-12-13 07:33] LABS: Manual Review Performed
[2016-12-13] MEDS: VENLAFAXINE HCL ER 75 MG CAP PO SCH (07:56)
[2016-12-13] MEDS: CHOLECALCIFEROL 1,000 UNIT TAB PO SCH (07:56)
[2016-12-13] MEDS: SENNOSIDES-DOCUSATE SODIUM 1 EACH TAB PO SCH (07:56)
[2016-12-13] MEDS: AMIODARONE 200 MG TAB PO SCH ×2 (07:56→16:20)
[2016-12-13] MEDS: APIXABAN 2.5 MG TABLET PO SCH (07:57)
[2016-12-13] MEDS: SPIRONOLACTONE 25 MG TAB PO SCH (07:57)
[2016-12-13] MEDS ORDERED: POLYETHYLENE GLYCOL 3350 17 GM POWD.PACK PO SCH (09:00)
[2016-12-13] MEDS ORDERED: FAMOTIDINE 20 MG TAB PO SCH (09:00)
[2016-12-13 11:09] VITALS: RESP 16
--- NOTE | 2016-12-13 16:12 | P.PN ---
Subjective Progress Note Date: 12/13/16 Principal diagnosis: Shortness of breath Liborio is an 81-year-old female admitted to the hospital primarily with atrial fibrillation and associated congestive heart failure. She states that she did well last evening, after eating breakfast this morning she did have an upper episode of nausea after eating her breakfast. Breathing overall is stable. Sodium 129, potassium 4.3, BUN 52, creatinine 1.5. We will resume oral Lasix at 40 mg one tablet by mouth daily. Objective - Vital Signs Vital signs: Vital Signs Temp 97.4 F L 12/13/16 11:08 Pulse 91 12/13/16 11:08 Resp 16 12/13/16 11:08 BP 108/79 12/13/16 11:08 Pulse Ox 95 12/13/16 11:08 Intake & Output 12/12/16 12/13/16 12/13/16 18:59 06:59 18:59 Intake Total 720 240 Output Total 600 125 Balance 120 -125 240 Weight 78.3 kg Intake: Oral 720 240 Output: Urine 600 125 Other: Voiding Method Bedside Commode Bedside Commode Bedside Commode # Voids 1 # Bowel Movements 3 - Exam PHYSICAL EXAMINATION: HEENT: Head is atraumatic, normocephalic. Pupils equal, round. Neck is supple. There is no elevated jugular venous pressure. HEART EXAMINATION: Heart S1 and S2 irregularly irregular CHEST EXAMINATION: Lungs are clear to auscultation and precussion. No chest wall tenderness is noted on palpation or with deep breathing.] ABDOMEN: [ Soft, nontender. Bowel sounds are heard. No organomegaly noted]. EXTREMITIES:[ 2+ peripheral pulses with no evidence of peripheral edema and no calf tenderness noted]. NEUROLOGIC [patient is awake, alert and oriented -3.] . - Labs CBC & Chem 7: 12/13/16 05:50 12/13/16 05:50 Labs: Abnormal Lab Results - Last 24 Hours (Table) 12/13/16 12/13/16 Range/Units 05:50 05:50 MCV 105.0 H (80.0-100.0) fL Sodium 129 L (137-145) mmol/L Chloride 92 L (98-107) mmol/L BUN 42 H (7-17) mg/dL Creatinine 1.50 H (0.52-1.04) mg/dL Glucose 111 H (74-99) mg/dL Assessment and Plan (1) Chronic a-fib Current Visit: Yes Status: Acute Code(s): I48.2 - CHRONIC ATRIAL FIBRILLATION SNOMED Code(s): 295456692 (2) Systolic CHF, acute on chronic Current Visit: Yes Status: Acute Code(s): I50.23 - ACUTE ON CHRONIC SYSTOLIC (CONGESTIVE) HEART FAILURE SNOMED Code(s): 716251857 (3) HTN (hypertension) Current Visit: Yes Status: Acute Code(s): I10 - ESSENTIAL (PRIMARY) HYPERTENSION SNOMED Code(s): 19976408 Plan: From cardiology's perspective, we will resume oral Lasix at 40 mg one tablet by mouth daily today. Continue Coreg, Eliquis 2-1/2 twice a day, Cordarone 200 mg one tablet by mouth 3 times a day, pravastatin 10 mg daily, and Aldactone. DNP note has been reviewed, I agree with a documented findings and plan of care. Patient was seen and examined.
[2016-12-13 16:29] VITALS: BP 128/93; PULSE 92; TEMP 96.7
--- NOTE | 2016-12-13 19:31 | DS ---
DISCHARGE SUMMARY DATE OF ADMISSION: December 08, 2016. DATE OF DISCHARGE: December 13, 2016. FINAL DIAGNOSES: 1. Acute on chronic congestive heart failure exacerbation from systolic dysfunction, EF 20-25% from hypertensive heart disease. 2. Hypertensive heart disease. 3. Moderate secondary pulmonary hypertension from congestive heart failure. 4. Moderate severe tricuspid regurgitation. Nonrheumatic. 5. Moderate mitral regurgitation. Nonrheumatic. 6. Persistent atrial fibrillation. Rate controlled. 7. Hyponatremia, likely hypoosmolar from decreased oral intake. 8. Decreased free fluid intake. 9. Hyperkalemia due to acute renal failure. 10.Hyperlipidemia. 11.Essential hypertension. 12.Chronic gastroesophageal reflux disease. 13.Anxiety, depression, not otherwise specified. 14.Acute renal failure prerenal from Lasix. CONSULTATION: Dr. Mason Felipe from Cardiology. HOSPITAL COURSE: This patient presented with shortness of breath. Found to be in CHF exacerbation. Responded well to Lasix. The patient's creatinine from 0.96 did bump up to 2.02. After holding back on the Lasix, did come down to 1.50. The patient's 2D echocardiogram showed EF of 20-25%. Patient atrial fibrillation rate is controlled by the time of discharge. The patient on Eliquis. PHYSICAL EXAMINATION: On examination lungs improved air entry. Heart sounds irregular. The patient's BUN and creatinine at the time of discharge is 1.50. Care was discussed with the patient. Discharge planning more than 35 minutes. DISCHARGE MEDICATIONS: 1. Vitamin D3 1000 units p.o. daily. 2. Zestril 20 mg p.o. daily. 3. Pravachol 10 mg q.h.s. 4. 50 mg q.48 hours. 5. Effexor XR 75 mg p.o. daily. 6. Trazodone 100 mg p.o. q.h.s. 7. Tylenol 650 mg q.6h p.r.n. 8. Cordarone 200 mg p.o. t.i.d. 9. Eliquis 2.5 mg p.o. b.i.d. 10.Coreg 6.25 mg p.o. b.i.d. 11.Pepcid 20 mg p.o. daily. 12.Lasix 40 mg p.o. daily. 13.MiraLAX 17 g p.o. Sunday, Sunday and Sunday. 14.Aldactone 25 mg p.o. daily. Labs, BMP in 3 days. Follow up with Dr. Pena in [address] Mason Felipe on 12/15/16. MMPHUC / RANJIT: [id number] /
[2016-12-14] MEDS ORDERED: FUROSEMIDE 40 MG TAB PO SCH (09:00)
== END 2016-12-13 16:35 | disposition home health service (06) | DRG 308 ==
LOC: EC 10:18 → 6SEL 13:05 → 4MS4W 12-13 10:49
PROVIDERS: ADMIT Hospitalist; ATTEND Hospitalist
DX: I48.1 Persistent atrial fibrillation (principal); I50.23 Acute on chronic systolic (congestive) heart failure; N17.9 Acute kidney failure, unspecified; E87.1 Hypo-osmolality and hyponatremia; I11.0 Hypertensive heart disease with heart failure; F32.9 Major depressive disorder, single episode, unspecified; E78.5 Hyperlipidemia, unspecified; F41.9 Anxiety disorder, unspecified; E03.9 Hypothyroidism, unspecified; I08.1 Rheumatic disorders of both mitral and tricuspid valves; E87.5 Hyperkalemia; R11.0 Nausea; M54.30 Sciatica, unspecified side; I27.20 Pulmonary hypertension, unspecified; I48.2 Chronic atrial fibrillation; K21.9 Gastro-esophageal reflux disease without esophagitis; T50.2X5A Adverse effect of carbonic-anhydrase inhibitors, benzothiadiazides and other diuretics, initial encounter; Z90.710 Acquired absence of both cervix and uterus; Z90.49 Acquired absence of other specified parts of digestive tract; Z87.891 Personal history of nicotine dependence; Z85.3 Personal history of malignant neoplasm of breast; Z79.899 Other long term (current) drug therapy; Z89.431 Acquired absence of right foot; Z87.440 Personal history of urinary (tract) infections; Z79.01 Long term (current) use of anticoagulants
CPT/HCPCS: 36415; 70450; 71010; 71020; 80048; 80053; 81001; 82550; 82553; 83735; 83880; 84100; 84439; 84443; 84481; 84484; 85025; 85610; 85730; 93005; 93306; 94760; 96365; 96366; 96375; 99291

== ENCOUNTER → 2018-07-01 | Outpatient (CLI) | payer MEDICARE, BC ==
[2018-07-01 10:11] LABS: Basophils % (A) 1 %; Eosinophils # (A) 0.1 k/uL (0-0.7); Eosinophils % (A) 2 %; HCT 38.6 % (34.0-46.0); Lymphocytes # (A) 1.6 k/uL (1.0-4.8); Lymphocytes % (A) 25 %; MCH 33.7 pg (25.0-35.0); MCHC 33.7 g/dL (31.0-37.0); MCV 100.2 fL (80.0-100.0); Macrocytosis Slight; Monocytes # (A) 0.3 k/uL (0-1.0); Monocytes % (A) 5 %; Neutrophils # (A) 4.2 k/uL (1.3-7.7); Neutrophils % (A) 66 %; Platelet Count 223 k/uL (150-450); RBC 3.86 m/uL (3.80-5.40); WBC 6.3 k/uL (3.8-10.6)
[2018-07-01 10:33] LABS: Appearance,Urine Clear (Clear); Bilirubin,Urine Negative (Negative); Blood,Urine Negative (Negative); Color,Urine Yellow; Glucose,Urine (UA) Negative (Negative); Ketones,Urine Negative (Negative); Leukocyte Esterase,Urine Trace (Negative); Mucus,Urine Rare /hpf; Nitrite,Urine Negative (Negative); PH, Urine 7.5 (5.0-8.0); Protein,Urine Trace (Negative); RBC,Urine 1 /hpf (0-5); Specific Gravity,Urine 1.015 (1.001-1.035); Squamous Epithelial Cell,Urine <1 /hpf (0-4); Urobilinogen,Urine <2.0 mg/dL (<2.0); WBC,Urine 3 /hpf (0-5)
[2018-07-01 17:19] LABS: Albumin 4.2 g/dL (3.80-4.90); Albumin/Globulin Ratio 2.1 (1.60-3.17); Calcium 8.6 mg/dL (8.7-10.3); LDL Cholesterol,Calculated 67.4 mg/dL (0.0-131.0); Potassium 4.3 mmol/L (3.5-5.5); Total Bilirubin 0.5 mg/dL (0.3-1.2); Total Protein 6.2 g/dL (6.2-8.2); VLDL Calculation 34.6 mg/dL (5.00-40.00)
== END | disposition home or self-care (01) ==
LOC: LABWHC1 09:20
PROVIDERS: ATTEND Internal Medicine
DX: I10 Essential (primary) hypertension (principal); R41.3 Other amnesia
CPT/HCPCS: 36415; 80053; 80061; 81001; 84443; 85025

== ENCOUNTER → 2021-08-09 | Outpatient (CLI) | payer MEDICARE ==
[2021-08-09 14:40] LABS: HCT 41.8 % (37.2-46.3); HGB 13.6 g/dL (12.0-15.0); MCHC 32.5 g/dL (32.0-37.0); MCV 104.5 fL (80.0-97.0); Mean Platelet Volume 10.4 fL (9.5-12.2); NRBC Per 100 WBC 0 /100 WBCS (0.0-0.0); Platelet Count 208 X 10*3/uL (140-440); RDW 13.1 % (11.5-14.5); WBC 8.36 X 10*3/uL (4.50-10.00)
[2021-08-09 14:48] LABS: ALT 11 U/L (8-44); AST 18 U/L (13-35); African American GFR (CKD) 47.1 (60.0-200.0); Albumin 3.8 g/dL (3.8-4.9); Albumin/Globulin Ratio 1.41 (1.60-3.17); Alkaline Phosphatase 73 U/L (41-126); BUN/Creat Ratio 17.08 Ratio (12.00-20.00); Blood Urea Nitrogen 20.5 mg/dL (9.0-27.0); Calcium 9.1 mg/dL (8.7-10.3); Carbon Dioxide 32.3 mmol/L (20.0-27.5); Chloride 97 mmol/L (96-109); Chol/HDL Ratio 3.65 Ratio; Globulin 2.7 g/dL (1.6-3.3); Glucose 98 mg/dL (70-110); LDL Cholesterol,Calculated 64.4 mg/dL (0.0-131.0); Non-African American GFR(CKD) 40.6 (60.0-200.0); Potassium 4.4 mmol/L (3.5-5.5); Sodium 140 mmol/L (135-145); Total Protein 6.5 g/dL (6.2-8.2)
== END | disposition home or self-care (01) ==
LOC: LABWHC1 08:19
PROVIDERS: ATTEND Family Medicine
DX: I10 Essential (primary) hypertension (principal); E78.5 Hyperlipidemia, unspecified
CPT/HCPCS: 36415; 80053; 80061; 85027

== ENCOUNTER → 2021-10-12 | Outpatient (CLI) | payer MEDICARE | END | disposition home or self-care (01) | LOC: LABWHC1 14:46 | PROVIDERS: ATTEND Internal Medicine Interventional Cardiology | DX: I48.91 Unspecified atrial fibrillation (principal) | CPT/HCPCS: 36415; 80162 ==

== ENCOUNTER → 2022-03-01 | Outpatient (CLI) | payer MEDICARE ==
[2022-03-01 23:03] LABS: African American GFR (CKD) 46.7 (60.0-200.0); BUN/Creat Ratio 24.33 Ratio (12.00-20.00); Blood Urea Nitrogen 29.2 mg/dL (9.0-27.0); Calcium 9.4 mg/dL (8.7-10.3); Carbon Dioxide 32.5 mmol/L (20.0-27.5); Chloride 99 mmol/L (96-109); Glucose 81 mg/dL (70-110); Non-African American GFR(CKD) 40.3 (60.0-200.0); Sodium 143 mmol/L (135-145)
== END | disposition home or self-care (01) ==
LOC: LABWHC1 16:28
PROVIDERS: ATTEND Internal Medicine Interventional Cardiology
DX: I48.91 Unspecified atrial fibrillation (principal)
CPT/HCPCS: 36415; 80048; 84443

== ENCOUNTER 2022-03-24 09:35 | Inpatient (IN) | payer MEDICARE ==
[2022-03-24 10:10] LABS: Basophils # (A) 0.1 k/uL (0-0.2); Basophils % (A) 1 %; Eosinophils # (A) 0.1 k/uL (0-0.7); Eosinophils % (A) 1 %; HCT 45.5 % (34.0-46.0); HGB 15.6 gm/dL (11.4-16.0); Lymphocytes # (A) 2.1 k/uL (1.0-4.8); Lymphocytes % (A) 21 %; MCH 34.6 pg (25.0-35.0); MCHC 34.3 g/dL (31.0-37.0); MCV 100.8 fL (80.0-100.0); Macrocytosis Slight; Mean Platelet Volume 8.7; Monocytes # (A) 0.4 k/uL (0-1.0); Monocytes % (A) 4 %; Neutrophils # (A) 7.4 k/uL (1.3-7.7); Neutrophils % (A) 73 %; Platelet Count 230 k/uL (150-450); RBC 4.51 m/uL (3.80-5.40); RDW 13.1 % (11.5-15.5); WBC 10.1 k/uL (3.8-10.6)
--- NOTE | 2022-03-24 10:12 | XR ---
EXAMINATION TYPE: XR chest 2V DATE OF EXAM: 03/24/2022 COMPARISON: 12/10/2016 HISTORY: Difficulty breathing TECHNIQUE: Frontal and lateral views of the chest are obtained. FINDINGS: The heart is not enlarged and there is no pulmonary vascular congestion. There are increas ed interstitial prominence bilaterally and mild left basilar scarring. No other airspace opacity. Fla ttening of the diaphragm and chronic elevation of the left hemidiaphragm. Apparent suture material in the right upper lung raises question of prior surgical changes. No pneumothorax. No pleural effusion . No acute osseous abnormality. IMPRESSION: COPD. No acute cardiopulmonary process.
[2022-03-24 10:19] LABS: Albumin 4.1 g/dL (3.5-5.0); Calcium 9.3 mg/dL (8.4-10.2); Magnesium 2.1 mg/dL (1.6-2.3); Total Protein 7.4 g/dL (6.3-8.2)
[2022-03-24 10:29] LABS: Prothrombin Time 10.5 sec (9.0-12.0)
[2022-03-24 10:40] LABS: Potassium 4.2 mmol/L (3.5-5.1)
[2022-03-24 11:19] LABS: Partial Thromboplastin Time 19.4 sec (22.0-30.0)
[2022-03-24] MEDS ORDERED: IPRATROPIUM-ALBUTEROL 3 ML NEB INHALATION STA (11:25)
--- NOTE | 2022-03-24 11:42 | ED ---
SOB HPI - General Chief Complaint: Shortness of Breath Stated Complaint: sob Time Seen by Provider: 03/24/22 09:40 Source: EMS Mode of arrival: EMS - History of Present Illness Initial Comments: 86-year-old female past medical history of A. fib, hypertension, hyperlipidemia presents to the emergency department reporting chest pain, shortness of breath and palpitations. Daughters are at bedside and provide history. States that the patient has a history of A. fib. She saw her file keeper, Dr. Moore 3 weeks ago and was found to be back in A. fib. They were going to switch her medications over. She was titrated down on her carvedilol, switched over to amiodarone and then digoxin was discontinued. They then titrated her carvedilol back up. This changed just finished 3 days ago. Today the patient was having extreme shortness of breath, chest pain and rapid heart rate at home. They state that her heart rate was up to 115. They called EMS. EMS transported the patient to the hospital and were concerned for an episode of V. fib however appears to only be artifact upon review. The patient does arrive complaining of left-sided chest pain and shortness of breath. No oxgen at home. No history of COPD. Does have history of congestive heart failure. On water pills and has been taking them as directed. No reported fevers. No other alleviating, precipitating or modifying factors - Related Data Home Medications Medication Instructions Recorded Confirmed Pravastatin Sodium [Pravachol] 10 mg PO HS@199912/08/16 03/24/22 Apixaban [Eliquis] 2.5 mg PO BID@0800,199903/24/22 03/24/22 Cholecalciferol [Vitamin D3 (25 50 mcg PO HS@0803/24/22 03/24/22 Mcg = 1000 Iu)] Losartan [Cozaar] 25 mg PO HS@199903/24/22 03/24/22 Venlafaxine HCl ER [Effexor XR] 37.5 mg PO DAILY@0800 03/24/22 03/24/22 carvediloL [Coreg] 3.125 mg PO BID@0800,199903/24/22 03/24/22 traZODone HCL [Desyrel] 50 mg PO HS@199903/24/22 03/24/22 Previous Rx's Medication Instructions Recorded Amiodarone [Cordarone] 200 mg PO DAILY #0 03/27/22 Furosemide [Lasix] 20 mg PO DAILY@0800 #0 03/27/22 Sucralfate [Carafate] 1 gm PO ACHS 30 Days #120 g 03/27/22 Allergies Allergy/AdvReac Type Severity Reaction Status Date / Time No Known Allergies Allergy Verified 03/24/22 10:31 Review of Systems ROS Statement: Those systems with pertinent positive or pertinent negative responses have been documented in the HPI. ROS Other: All systems not noted in ROS Statement are negative. Past Medical History Past Medical History: Cancer, Chest Pain / Angina, Hyperlipidemia, Hypertension, Thyroid Disorder Additional Past Medical History / Comment(s): "IRREG HEART BEAT IN PAST", "EARLY SIGNS OF DEMENTIA",SKIN CANCER-HAD A SKIN GRAFT BY RT EYE, CHRONIC BACK PAIN,SCIATICA. 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 x3 c-sections, xe bladder suspension sx Past Anesthesia/Blood Transfusion Reactions: No Reported Reaction Past Psychological History: Anxiety, Depression Smoking Status: Never smoker Past Alcohol Use History: None Reported Past Drug Use History: None Reported - Past Family History Mother Family Medical History: Cancer Additional Family Medical History / Comment(s): breast cancer Father Family Medical History: Congestive Heart Failure (CHF) Additional Family Medical History / Comment(s): lived to be 101 Brother(s) Family Medical History: Cancer Additional Family Medical History / Comment(s): brain cancer General Exam Limitations: altered mental status (dementia) General appearance: alert, in no apparent distress Head exam: Present: atraumatic, normocephalic, normal inspection Eye exam: Present: normal appearance, PERRL, EOMI. Absent: scleral icterus, conjunctival injection, periorbital swelling ENT exam: Present: normal exam, mucous membranes moist Neck exam: Present: normal inspection. Absent: tenderness, meningismus, lymphadenopathy Respiratory exam: Present: decreased breath sounds. Absent: respiratory distress, wheezes, rales, rhonchi, stridor Cardiovascular Exam: Present: tachycardia, irregular rhythm, normal heart sounds. Absent: systolic murmur, diastolic murmur, rubs, gallop, clicks GI/Abdominal exam: Present: soft, normal bowel sounds. Absent: distended, tenderness, guarding, rebound, rigid Extremities exam: Present: normal inspection, full ROM, normal capillary refill. Absent: tenderness, pedal edema, joint swelling, calf tenderness Back exam: Present: normal inspection Neurological exam: Present: alert, oriented X3, CN II-XII intact Psychiatric exam: Present: normal affect, normal mood Skin exam: Present: warm, dry, intact, normal color. Absent: rash Course Vital Signs 03/24/22 03/24/22 03/24/22 09:37 10:00 11:00 Temperature 97.6 F Pulse Rate 97 85 89 Respiratory 16 22 21 Rate Blood Pressure 110/79 107/69 109/86 O2 Sat by Pulse 97 97 97 Oximetry 03/24/22 03/24/22 03/24/22 11:30 12:00 12:11 Temperature Pulse Rate 88 74 78 Respiratory 22 14 Rate Blood Pressure 105/70 102/74 O2 Sat by Pulse 95 97 Oximetry 03/24/22 12:20 Temperature Pulse Rate 68 Respiratory Rate Blood Pressure O2 Sat by Pulse Oximetry Procedures - [place] Protocol (Time Out) Nurse: Taina Tatum Medical Decision Making - Medical Decision Making Was pt. sent in by a medical professional or institution (SARIAH Barriga, PSYCHOLOGY INTERN, urgent care, hospital, or snf...) When possible be specific @ -[No] Did you speak to anyone other than the patient for history (EMS, parent, family, police, friend...)? What history was obtained from this source patients daughter and daughter in law Did you review nursing and triage notes (agree or disagree)? Why? @ -[I reviewed and agree with nursing and triage notes] Were old charts reviewed (outside hosp., previous admission, EMS record, old EKG, old radiological studies, urgent care reports/EKG's, snf records)? Report findings No old charts reviewed Differential Diagnosis (chest pain, altered mental status, abdominal pain women, abdominal pain men, vaginal bleeding, weakness, fever, dyspnea, syncope, headache, dizziness, GI bleed, back pain, seizure, CVA, palpatations, mental health)? afib, aflutter, svt, vtach, vfib EKG interpreted by me (3pts min.). yes X-rays interpreted by me (1pt min.). yes CT interpreted by me (1pt min.). @ -[None done] U/S interpreted by me (1pt. min.). @ -[None done] What testing was considered but not performed or refused? (CT, X-rays, U/S, labs )? Why? @ -[None] What meds were considered but not given or refused? Why? @ -[None] Did you discuss the management of the patient with other professionals (professionals i.e. Dr., PA, PSYCHOLOGY INTERN, lab, RT, psych nurse, social science research assistant, director of development and marketing, teacher, airfield services officer, egg caser)? Give summary admitting physician Was smoking cessation discussed for >3mins.? @ -[No] Was critical care preformed (if so, how long)? @ -[No] Were there social determinants of health that impacted care today? How? (Homelessness, low income, unemployed, alcoholism, drug addiction, transportation, low edu. Level, literacy, decrease access to med. care, penitentiary, rehab)? @ -[No] Was there de-escalation of care discussed even if they declined (Discuss DNR or withdrawal of care, Hospice)? DNR status No What co-morbidities impacted this encounter? (DM, HTN, Smoking, COPD, CAD, Cancer, CVA, ARF, Chemo, Hep., AIDS, mental health diagnosis, sleep apnea, morbid obesity)? chf, afib Was patient admitted / discharged? Hospital course, mention meds given and route, prescriptions, significant lab abnormalities, going to OR and other pertinent info. Upon arrival patient placed into room 1. Thorough history and physical exam was performed. I did review outside EKG strips which do not demonstrate V. fib. Patient hooked to continuous pulse ox and cardiac monitoring. Laboratory studies are obtained and reviewed. Troponin mildly elevated at 0.05. Chest x- ray demonstrates no acute process. Discussed the results with the patient and family at bedside. Due to reported chest pain recommended admission to the hospital for which the patient was agreeable. We'll trend her troponins.. Heart rate improved in the 60s at this time. Patient taken to the floor in stable condition. Spoke with Dr. Culver for admission. Undiagnosed new problem with uncertain prognosis? yes Drug Therapy requiring intensive monitoring for toxicity (Heparin, Nitro, Insul in, Cardizem)? @ -[No] Were any procedures done? @ -[No] Diagnosis/symptom? acute chest pain, nstemi Acute, or Chronic, or Acute on Chronic? acute on chronic Uncomplicated (without systemic symptoms) or Complicated (systemic symptoms)? complicated Side effects of treatment? @ -[No] Exacerbation, Progression, or Severe Exacerbation? @ -[No] Poses a threat to life or bodily function? How? (Chest pain, [place], [place], pneumonia, PE, COPD, DKA, ARF, appy, cholecystitis, CVA, Diverticulitis, Homicidal, Suicidal, threat to staff... and all critical care pts) yes Diagnosis/symptom? afib Acute, or Chronic, or Acute on Chronic? chronic Uncomplicated (without systemic symptoms) or Complicated (systemic symptoms)? complicated Side effects of treatment? @ -[No] Exacerbation, Progression, or Severe Exacerbation? @ -[No] Poses a threat to life or bodily function? How? (Chest pain, [place], [place], pneumonia, PE, COPD, DKA, ARF, appy, cholecystitis, CVA, Diverticulitis, Homicidal, Suicidal, threat to staff... and all critical care pts) yes - Lab Data Result diagrams: 03/26/22 07:23 03/26/22 07:23 Lab Results 03/24/22 03/24/22 03/24/22 Range/Units 09:47 09:47 09:47 WBC 10.1 (3.8-10.6) k/uL RBC 4.51 (3.80-5.40) m/uL Hgb 15.6 (11.4-16.0) gm/dL Hct 45.5 (34.0-46.0) % MCV 100.8 H (80.0-100.0) fL MCH 34.6 (25.0-35.0) pg MCHC 34.3 (31.0-37.0) g/dL RDW 13.1 (11.5-15.5) % Plt Count 230 (150-450) k/uL MPV 8.7 Neutrophils % 73 % Lymphocytes % 21 % Monocytes % 4 % Eosinophils % 1 % Basophils % 1 % Neutrophils # 7.4 (1.3-7.7) k/uL Lymphocytes # 2.1 (1.0-4.8) k/uL Monocytes # 0.4 (0-1.0) k/uL Eosinophils # 0.1 (0-0.7) k/uL Basophils # 0.1 (0-0.2) k/uL Macrocytosis Slight PT 10.5 (9.0-12.0) sec INR 1.0 (<1.2) APTT 19.4 L (22.0-30.0) sec Sodium 145 (137-145) mmol/L Potassium 4.2 (3.5-5.1) mmol/L Chloride 103 (98-107) mmol/L Carbon Dioxide 30 (22-30) mmol/L Anion Gap 12 mmol/L BUN 69 H (7-17) mg/dL Creatinine 1.17 H (0.52-1.04) mg/dL Est GFR (CKD-EPI)AfAm 48 (>60 ml/min/1.73 sqM) Est GFR (CKD-EPI)NonAf 42 (>60 ml/min/1.73 sqM) Glucose 284 H (74-99) mg/dL Estimated Ave Glu mg/dL Hemoglobin A1c (0.0-6.0) % Lactic Ac Sepsis Rflx Plasma Lactic Acid Jose (0.7-2.0) mmol/L Calcium 9.3 (8.4-10.2) mg/dL Magnesium 2.1 (1.6-2.3) mg/dL Total Bilirubin 1.0 (0.2-1.3) mg/dL AST 36 (14-36) U/L ALT 24 (4-34) U/L Alkaline Phosphatase 62 (38-126) U/L Troponin I (0.000-0.034) ng/mL NT-Pro-B Natriuret Pep pg/mL Total Protein 7.4 (6.3-8.2) g/dL Albumin 4.1 (3.5-5.0) g/dL Urine Color Urine Appearance (Clear) Urine pH (5.0-8.0) Ur Specific [place] (1.001-1.035) Urine Protein (Negative) Urine Glucose (UA) (Negative) Urine Ketones (Negative) Urine Blood (Negative) Urine Nitrite (Negative) Urine Bilirubin (Negative) Urine Urobilinogen (<2.0) mg/dL Ur Leukocyte Esterase (Negative) Coronavirus (PCR) (Not Detectd) Influenza Type A RNA (Not Detectd) Influenza Type B (PCR) (Not Detectd) 03/24/22 03/24/22 03/24/22 Range/Units 09:47 09:47 09:47 WBC (3.8-10.6) k/uL RBC (3.80-5.40) m/uL Hgb (11.4-16.0) gm/dL Hct (34.0-46.0) % MCV (80.0-100.0) fL MCH (25.0-35.0) pg MCHC (31.0-37.0) g/dL RDW (11.5-15.5) % Plt Count (150-450) k/uL MPV Neutrophils % % Lymphocytes % % Monocytes % % Eosinophils % % Basophils % % Neutrophils # (1.3-7.7) k/uL Lymphocytes # (1.0-4.8) k/uL Monocytes # (0-1.0) k/uL Eosinophils # (0-0.7) k/uL Basophils # (0-0.2) k/uL Macrocytosis PT (9.0-12.0) sec INR (<1.2) APTT (22.0-30.0) sec Sodium (137-145) mmol/L Potassium (3.5-5.1) mmol/L Chloride (98-107) mmol/L Carbon Dioxide (22-30) mmol/L Anion Gap mmol/L BUN (7-17) mg/dL Creatinine (0.52-1.04) mg/dL Est GFR (CKD-EPI)AfAm (>60 ml/min/1.73 sqM) Est GFR (CKD-EPI)NonAf (>60 ml/min/1.73 sqM) Glucose (74-99) mg/dL Estimated Ave Glu mg/dL Hemoglobin A1c (0.0-6.0) % Lactic Ac Sepsis Rflx Plasma Lactic Acid Jose 3.8 H* (0.7-2.0) mmol/L Calcium (8.4-10.2) mg/dL Magnesium (1.6-2.3) mg/dL Total Bilirubin (0.2-1.3) mg/dL AST (14-36) U/L ALT (4-34) U/L Alkaline Phosphatase (38-126) U/L Troponin I 0.085 H* (0.000-0.034) ng/mL NT-Pro-B Natriuret Pep 1710 pg/mL Total Protein (6.3-8.2) g/dL Albumin (3.5-5.0) g/dL Urine Color Urine Appearance (Clear) Urine pH (5.0-8.0) Ur Specific [place] (1.001-1.035) Urine Protein (Negative) Urine Glucose (UA) (Negative) Urine Ketones (Negative) Urine Blood (Negative) Urine Nitrite (Negative) Urine Bilirubin (Negative) Urine Urobilinogen (<2.0) mg/dL Ur Leukocyte Esterase (Negative) Coronavirus (PCR) (Not Detectd) Influenza Type A RNA (Not Detectd) Influenza Type B (PCR) (Not Detectd) 03/24/22 03/24/22 03/24/22 Range/Units 09:47 09:47 10:41 WBC (3.8-10.6) k/uL RBC (3.80-5.40) m/uL Hgb (11.4-16.0) gm/dL Hct (34.0-46.0) % MCV (80.0-100.0) fL MCH (25.0-35.0) pg MCHC (31.0-37.0) g/dL RDW (11.5-15.5) % Plt Count (150-450) k/uL MPV Neutrophils % % Lymphocytes % % Monocytes % % Eosinophils % % Basophils % % Neutrophils # (1.3-7.7) k/uL Lymphocytes # (1.0-4.8) k/uL Monocytes # (0-1.0) k/uL Eosinophils # (0-0.7) k/uL Basophils # (0-0.2) k/uL Macrocytosis PT (9.0-12.0) sec INR (<1.2) APTT (22.0-30.0) sec Sodium (137-145) mmol/L Potassium (3.5-5.1) mmol/L Chloride (98-107) mmol/L Carbon Dioxide (22-30) mmol/L Anion Gap mmol/L BUN (7-17) mg/dL Creatinine (0.52-1.04) mg/dL Est GFR (CKD-EPI)AfAm (>60 ml/min/1.73 sqM) Est GFR (CKD-EPI)NonAf (>60 ml/min/1.73 sqM) Glucose (74-99) mg/dL Estimated Ave Glu mg/dL Hemoglobin A1c (0.0-6.0) % Lactic Ac Sepsis Rflx Y Plasma Lactic Acid Jose (0.7-2.0) mmol/L Calcium (8.4-10.2) mg/dL Magnesium (1.6-2.3) mg/dL Total Bilirubin (0.2-1.3) mg/dL AST (14-36) U/L ALT (4-34) U/L Alkaline Phosphatase (38-126) U/L Troponin I (0.000-0.034) ng/mL NT-Pro-B Natriuret Pep pg/mL Total Protein (6.3-8.2) g/dL Albumin (3.5-5.0) g/dL Urine Color Urine Appearance (Clear) Urine pH (5.0-8.0) Ur Specific [place] (1.001-1.035) Urine Protein (Negative) Urine Glucose (UA) (Negative) Urine Ketones (Negative) Urine Blood (Negative) Urine Nitrite (Negative) Urine Bilirubin (Negative) Urine Urobilinogen (<2.0) mg/dL Ur Leukocyte Esterase (Negative) Coronavirus (PCR) Not Detected (Not Detectd) Influenza Type A RNA Not Detected (Not Detectd) Influenza Type B (PCR) Not Detected (Not Detectd) 03/24/22 03/24/22 03/24/22 Range/Units 12:50 12:50 13:22 WBC (3.8-10.6) k/uL RBC (3.80-5.40) m/uL Hgb (11.4-16.0) gm/dL Hct (34.0-46.0) % MCV (80.0-100.0) fL MCH (25.0-35.0) pg MCHC (31.0-37.0) g/dL RDW (11.5-15.5) % Plt Count (150-450) k/uL MPV Neutrophils % % Lymphocytes % % Monocytes % % Eosinophils % % Basophils % % Neutrophils # (1.3-7.7) k/uL Lymphocytes # (1.0-4.8) k/uL Monocytes # (0-1.0) k/uL Eosinophils # (0-0.7) k/uL Basophils # (0-0.2) k/uL Macrocytosis PT (9.0-12.0) sec INR (<1.2) APTT (22.0-30.0) sec Sodium (137-145) mmol/L Potassium (3.5-5.1) mmol/L Chloride (98-107) mmol/L Carbon Dioxide (22-30) mmol/L Anion Gap mmol/L BUN (7-17) mg/dL Creatinine (0.52-1.04) mg/dL Est GFR (CKD-EPI)AfAm (>60 ml/min/1.73 sqM) Est GFR (CKD-EPI)NonAf (>60 ml/min/1.73 sqM) Glucose (74-99) mg/dL Estimated Ave Glu mg/dL Hemoglobin A1c (0.0-6.0) % Lactic Ac Sepsis Rflx Plasma Lactic Acid Jose 3.4 H* (0.7-2.0) mmol/L Calcium (8.4-10.2) mg/dL Magnesium (1.6-2.3) mg/dL Total Bilirubin (0.2-1.3) mg/dL AST (14-36) U/L ALT (4-34) U/L Alkaline Phosphatase (38-126) U/L Troponin I 0.070 H* (0.000-0.034) ng/mL NT-Pro-B Natriuret Pep pg/mL Total Protein (6.3-8.2) g/dL Albumin (3.5-5.0) g/dL Urine Color Light Yellow Urine Appearance Clear (Clear) Urine pH 7.5 (5.0-8.0) Ur Specific [place] 1.016 (1.001-1.035) Urine Protein Negative (Negative) Urine Glucose (UA) Trace H (Negative) Urine Ketones Negative (Negative) Urine Blood Negative (Negative) Urine Nitrite Negative (Negative) Urine Bilirubin Negative (Negative) Urine Urobilinogen <2.0 (<2.0) mg/dL Ur Leukocyte Esterase Negative (Negative) Coronavirus (PCR) (Not Detectd) Influenza Type A RNA (Not Detectd) Influenza Type B (PCR) (Not Detectd) 03/24/22 03/24/22 03/24/22 Range/Units 13:53 16:05 16:05 WBC (3.8-10.6) k/uL RBC (3.80-5.40) m/uL Hgb (11.4-16.0) gm/dL Hct (34.0-46.0) % MCV (80.0-100.0) fL MCH (25.0-35.0) pg MCHC (31.0-37.0) g/dL RDW (11.5-15.5) % Plt Count (150-450) k/uL MPV Neutrophils % % Lymphocytes % % Monocytes % % Eosinophils % % Basophils % % Neutrophils # (1.3-7.7) k/uL Lymphocytes # (1.0-4.8) k/uL Monocytes # (0-1.0) k/uL Eosinophils # (0-0.7) k/uL Basophils # (0-0.2) k/uL Macrocytosis PT (9.0-12.0) sec INR (<1.2) APTT (22.0-30.0) sec Sodium (137-145) mmol/L Potassium (3.5-5.1) mmol/L Chloride (98-107) mmol/L Carbon Dioxide (22-30) mmol/L Anion Gap mmol/L BUN (7-17) mg/dL Creatinine (0.52-1.04) mg/dL Est GFR (CKD-EPI)AfAm (>60 ml/min/1.73 sqM) Est GFR (CKD-EPI)NonAf (>60 ml/min/1.73 sqM) Glucose (74-99) mg/dL Estimated Ave Glu mg/dL Hemoglobin A1c (0.0-6.0) % Lactic Ac Sepsis Rflx Y Plasma Lactic Acid Jose 2.1 H* (0.7-2.0) mmol/L Calcium (8.4-10.2) mg/dL Magnesium (1.6-2.3) mg/dL Total Bilirubin (0.2-1.3) mg/dL AST (14-36) U/L ALT (4-34) U/L Alkaline Phosphatase (38-126) U/L Troponin I 0.089 H* (0.000-0.034) ng/mL NT-Pro-B Natriuret Pep pg/mL Total Protein (6.3-8.2) g/dL Albumin (3.5-5.0) g/dL Urine Color Urine Appearance (Clear) Urine pH (5.0-8.0) Ur Specific [place] (1.001-1.035) Urine Protein (Negative) Urine Glucose (UA) (Negative) Urine Ketones (Negative) Urine Blood (Negative) Urine Nitrite (Negative) Urine Bilirubin (Negative) Urine Urobilinogen (<2.0) mg/dL Ur Leukocyte Esterase (Negative) Coronavirus (PCR) (Not Detectd) Influenza Type A RNA (Not Detectd) Influenza Type B (PCR) (Not Detectd) 03/24/22 03/24/22 03/24/22 Range/Units 16:47 19:05 19:29 WBC (3.8-10.6) k/uL RBC (3.80-5.40) m/uL Hgb (11.4-16.0) gm/dL Hct (34.0-46.0) % MCV (80.0-100.0) fL MCH (25.0-35.0) pg MCHC (31.0-37.0) g/dL RDW (11.5-15.5) % Plt Count (150-450) k/uL MPV Neutrophils % % Lymphocytes % % Monocytes % % Eosinophils % % Basophils % % Neutrophils # (1.3-7.7) k/uL Lymphocytes # (1.0-4.8) k/uL Monocytes # (0-1.0) k/uL Eosinophils # (0-0.7) k/uL Basophils # (0-0.2) k/uL Macrocytosis PT (9.0-12.0) sec INR (<1.2) APTT (22.0-30.0) sec Sodium (137-145) mmol/L Potassium (3.5-5.1) mmol/L Chloride (98-107) mmol/L Carbon Dioxide (22-30) mmol/L Anion Gap mmol/L BUN (7-17) mg/dL Creatinine (0.52-1.04) mg/dL Est GFR (CKD-EPI)AfAm (>60 ml/min/1.73 sqM) Est GFR (CKD-EPI)NonAf (>60 ml/min/1.73 sqM) Glucose (74-99) mg/dL Estimated Ave Glu mg/dL Hemoglobin A1c (0.0-6.0) % Lactic Ac Sepsis Rflx Y Y Plasma Lactic Acid Jose 3.1 H* (0.7-2.0) mmol/L Calcium (8.4-10.2) mg/dL Magnesium (1.6-2.3) mg/dL Total Bilirubin (0.2-1.3) mg/dL AST (14-36) U/L ALT (4-34) U/L Alkaline Phosphatase (38-126) U/L Troponin I (0.000-0.034) ng/mL NT-Pro-B Natriuret Pep pg/mL Total Protein (6.3-8.2) g/dL Albumin (3.5-5.0) g/dL Urine Color Urine Appearance (Clear) Urine pH (5.0-8.0) Ur Specific [place] (1.001-1.035) Urine Protein (Negative) Urine Glucose (UA) (Negative) Urine Ketones (Negative) Urine Blood (Negative) Urine Nitrite (Negative) Urine Bilirubin (Negative) Urine Urobilinogen (<2.0) mg/dL Ur Leukocyte Esterase (Negative) Coronavirus (PCR) (Not Detectd) Influenza Type A RNA (Not Detectd) Influenza Type B (PCR) (Not Detectd) 03/24/22 03/25/22 03/25/22 Range/Units 21:43 08:08 08:08 WBC 9.9 (3.8-10.6) k/uL RBC 4.29 (3.80-5.40) m/uL Hgb 14.7 (11.4-16.0) gm/dL Hct 44.0 (34.0-46.0) % MCV 102.5 H (80.0-100.0) fL MCH 34.3 (25.0-35.0) pg MCHC 33.5 (31.0-37.0) g/dL RDW 13.3 (11.5-15.5) % Plt Count 220 (150-450) k/uL MPV 8.2 Neutrophils % 69 % Lymphocytes % 24 % Monocytes % 4 % Eosinophils % 1 % Basophils % 0 % Neutrophils # 6.8 (1.3-7.7) k/uL Lymphocytes # 2.4 (1.0-4.8) k/uL Monocytes # 0.4 (0-1.0) k/uL Eosinophils # 0.1 (0-0.7) k/uL Basophils # 0.0 (0-0.2) k/uL Macrocytosis Slight PT (9.0-12.0) sec INR (<1.2) APTT (22.0-30.0) sec Sodium 147 H (137-145) mmol/L Potassium 3.6 (3.5-5.1) mmol/L Chloride 106 (98-107) mmol/L Carbon Dioxide 34 H (22-30) mmol/L Anion Gap 7 mmol/L BUN 67 H (7-17) mg/dL Creatinine 1.29 H (0.52-1.04) mg/dL Est GFR (CKD-EPI)AfAm 43 (>60 ml/min/1.73 sqM) Est GFR (CKD-EPI)NonAf 37 (>60 ml/min/1.73 sqM) Glucose 139 H (74-99) mg/dL Estimated Ave Glu mg/dL Hemoglobin A1c (0.0-6.0) % Lactic Ac Sepsis Rflx Plasma Lactic Acid Jose 1.4 (0.7-2.0) mmol/L Calcium 8.8 (8.4-10.2) mg/dL Magnesium (1.6-2.3) mg/dL Total Bilirubin (0.2-1.3) mg/dL AST (14-36) U/L ALT (4-34) U/L Alkaline Phosphatase (38-126) U/L Troponin I (0.000-0.034) ng/mL NT-Pro-B Natriuret Pep pg/mL Total Protein (6.3-8.2) g/dL Albumin (3.5-5.0) g/dL Urine Color Urine Appearance (Clear) Urine pH (5.0-8.0) Ur Specific [place] (1.001-1.035) Urine Protein (Negative) Urine Glucose (UA) (Negative) Urine Ketones (Negative) Urine Blood (Negative) Urine Nitrite (Negative) Urine Bilirubin (Negative) Urine Urobilinogen (<2.0) mg/dL Ur Leukocyte Esterase (Negative) Coronavirus (PCR) (Not Detectd) Influenza Type A RNA (Not Detectd) Influenza Type B (PCR) (Not Detectd) 03/26/22 03/26/22 03/26/22 Range/Units 07:23 07:23 07:23 WBC 9.6 (3.8-10.6) k/uL RBC 4.20 (3.80-5.40) m/uL Hgb 14.6 (11.4-16.0) gm/dL Hct 43.1 (34.0-46.0) % MCV 102.7 H (80.0-100.0) fL MCH 34.7 (25.0-35.0) pg MCHC 33.8 (31.0-37.0) g/dL RDW 13.2 (11.5-15.5) % Plt Count 204 (150-450) k/uL MPV 8.6 Neutrophils % % Lymphocytes % % Monocytes % % Eosinophils % % Basophils % % Neutrophils # (1.3-7.7) k/uL Lymphocytes # (1.0-4.8) k/uL Monocytes # (0-1.0) k/uL Eosinophils # (0-0.7) k/uL Basophils # (0-0.2) k/uL Macrocytosis Slight PT (9.0-12.0) sec INR (<1.2) APTT (22.0-30.0) sec Sodium 145 (137-145) mmol/L Potassium 3.8 (3.5-5.1) mmol/L Chloride 106 (98-107) mmol/L Carbon Dioxide 30 (22-30) mmol/L Anion Gap 9 mmol/L BUN 65 H (7-17) mg/dL Creatinine 1.17 H (0.52-1.04) mg/dL Est GFR (CKD-EPI)AfAm 48 (>60 ml/min/1.73 sqM) Est GFR (CKD-EPI)NonAf 42 (>60 ml/min/1.73 sqM) Glucose 142 H (74-99) mg/dL Estimated Ave Glu mg/dL 141 Hemoglobin A1c 6.6 H (0.0-6.0) % Lactic Ac Sepsis Rflx Plasma Lactic Acid Jose (0.7-2.0) mmol/L Calcium 9.0 (8.4-10.2) mg/dL Magnesium 2.3 (1.6-2.3) mg/dL Total Bilirubin 0.7 (0.2-1.3) mg/dL AST 31 (14-36) U/L ALT 23 (4-34) U/L Alkaline Phosphatase 63 (38-126) U/L Troponin I (0.000-0.034) ng/mL NT-Pro-B Natriuret Pep pg/mL Total Protein 6.8 (6.3-8.2) g/dL Albumin 3.7 (3.5-5.0) g/dL Urine Color Urine Appearance (Clear) Urine pH (5.0-8.0) Ur Specific [place] (1.001-1.035) Urine Protein (Negative) Urine Glucose (UA) (Negative) Urine Ketones (Negative) Urine Blood (Negative) Urine Nitrite (Negative) Urine Bilirubin (Negative) Urine Urobilinogen (<2.0) mg/dL Ur Leukocyte Esterase (Negative) Coronavirus (PCR) (Not Detectd) Influenza Type A RNA (Not Detectd) Influenza Type B (PCR) (Not Detectd) - EKG Data EKG Comments: EKG demonstrates A. fib with rate of 93. QRS 89. QTC of 389. No acute ST segment elevations or depressions Disposition Clinical Impression: Chronic a-fib, Elevated troponin, Chest pain Disposition: ADMITTED IP TO THIS HOSP Condition: Stable Is patient prescribed a controlled substance at d/c from ED?: No Time of Disposition: 12:02 Decision to Admit Reason: Admit from EC Decision Date: 03/24/22 Decision Time: 12:02
[2022-03-24] MEDS ORDERED: NALOXONE 0.4 MG/ML 1 ML VIAL IV PRN (12:02)
[2022-03-24] MEDS ORDERED: ASPIRIN 81 MG PO STA (12:05)
[2022-03-24] MEDS ORDERED: HEPARIN SODIUM 1,000 UN/ML (10ML VL) IV ONE (12:25)
[2022-03-24] MEDS ORDERED: HEPARIN SODIUM 1,000 UN/ML (10ML VL) IV PRN (12:25)
[2022-03-24] MEDS ORDERED: HEPARIN SOD,PORK IN 0.45% NACL 25,000 UNIT in 0.45% NACL 1 250ML.BAG IV SCH (12:30)
[2022-03-24] MEDS ORDERED: SODIUM CHLORIDE 0.9% 500 ML 500 ML IV ONE (12:33)
[2022-03-24] MEDS ORDERED: FUROSEMIDE 10 MG/ML 4 ML VIAL IV STA (12:48)
[2022-03-24] MEDS ORDERED: APIXABAN 2.5 MG TABLET PO SCH (13:00)
--- NOTE | 2022-03-24 13:05 | P.CRDCN ---
History of Present Illness History of present illness: HISTORY OF PRESENT ILLNESS: This is a 86-year-old female with a past medical history significant for hypertension, hyperlipidemia, paroxysmal atrial fibrillation, and congestive heart failure. Patient follows with Dr. Moore in the office. We have been asked to see the patient in consultation for shortness of breath. Patient's family is at the bedside and providing majority of the history. Patient's family members report that the patient has been sleeping all the time recently and overall not feeling well. They state this has been going on for the past month. She also reports some shortness of breath this morning. The patient's family also reports that the patient complains of chest pain when she is walking. She currently denies chest pain at time of examination. The patient was seen in the cardiology office by Dr. Moore on 03/22/2022. The patient was found to be in atrial fibrillation with a heart rate in the low 100s. Patients digoxin was discontinued. Her coreg was increased to BID dosing, instead of daily dosing. She was started on oral amiodarone 200mg BID. Plan was for possible possible electrical cardioversion if patients symptoms did not resolve. EKG on admission reveals atrial fibrillation with controlled ventricular rates. * Chest xray COPD. No acute cardiopulmonary process. * Laboratory data: WBC 10.1. Hemoglobin 15.6. Platelet count 230. Sodium 145. Potassium 4.2. BUN 69. Creatinine 1.17. Lactic acid 3.8. Troponin 0.085. ProBNP 1710. * Current home cardiac medications include amiodarone 200 mg twice a day, carvedilol 3.125 mg twice a day, pravastatin 10 mg at night, losartan 25 mg at night, Lasix 40 mg daily, and Eliquis 2.5mg BID * Echocardiogram completed in May 2018 revealed normal LV systolic function. Mildly dilated left and right atrium. Mild to moderate AR. Moderate MR. Mild TR. REVIEW OF SYSTEMS: At the time of my exam: CONSTITUTIONAL: Denies fever or chills. HEENT: Denies blurred vision, vision changes, or eye pain. Denies hemoptysis CARDIOVASCULAR: Denies chest pain. Denies orthopnea. Denies PND. Denies palpitations RESPIRATORY: + shortness of breath. GASTROINTESTINAL: Denies abdominal pain. Denies nausea or vomiting. HEMATOLOGIC: Denies bleeding disorders. GENITOURINARY: Denies any blood in urine. SKIN: Denies pruitis. Denies rash. PHYSICAL EXAM: VITAL SIGNS: Reviewed. GENERAL: Well-developed in no acute distress. HEENT: Head is normocephalic. Pupils are equal, round. Sclerae anicteric. Mucous membranes of the mouth are moist. Neck supple. No JVD or thyromegaly LUNGS: Respirations even and unlabored. Lungs with a few crackles at the bases. HEART: Irregular rate and rhythm. S1 and S2 heard. Systolic ejection murmur 2/6. ABDOMEN: Soft. Nondistended. Nontender. EXTREMITIES: Normal range of motion. No clubbing or cyanosis. Peripheral pulses intact. No lower extremity edema NEUROLOGIC: Awake. Not very talkative during examination. ASSESSMENT: Generalized fatigue x 1 month Shortness of breath Paroxysmal atrial fibrillation with controlled ventricular rate Mild exacerbation of chronic heart failure with preserved ejection fraction Abnormal troponin, acute coronary syndrome unlikely Elevated lactic acid Hypertension Hyperlipidemia PLAN: Obtain 2-D echo to assess cardiac structure and function Give 1 dose IV Lasix 40 mg then resume home dose of oral Lasix Continue additional home cardiac medications Discontinue IV heparin. Resume Eliquis. Trend troponins Continue telemetry monitoring Further recommendations pending patient course Nurse practitioner note has been reviewed by physician. Signing provider agrees with the documented findings, assessment, and plan of care. Past Medical History Past Medical History: Cancer, Chest Pain / Angina, Hyperlipidemia, Hypertension, Thyroid Disorder Additional Past Medical History / Comment(s): "IRREG HEART BEAT IN PAST", "EARLY SIGNS OF DEMENTIA",SKIN CANCER-HAD A SKIN GRAFT BY RT EYE, CHRONIC BACK PAIN,SCIATICA. 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 x3 c-sections, xe bladder suspension sx Past Anesthesia/Blood Transfusion Reactions: No Reported Reaction Past Psychological History: Anxiety, Depression Smoking Status: Never smoker Past Alcohol Use History: None Reported Past Drug Use History: None Reported - Past Family History Mother Family Medical History: Cancer Additional Family Medical History / Comment(s): breast cancer Father Family Medical History: Congestive Heart Failure (CHF) Additional Family Medical History / Comment(s): lived to be 101 Brother(s) Family Medical History: Cancer Additional Family Medical History / Comment(s): brain cancer Medications and Allergies Home Medications Medication Instructions Recorded Confirmed Type Pravastatin Sodium [Pravachol] 10 mg PO HS@199912/08/16 03/24/22 History Amiodarone [Cordarone] 200 mg PO BID@0800,199903/24/22 03/24/22 History Apixaban [Eliquis] 2.5 mg PO BID@0800,199903/24/22 03/24/22 History Cholecalciferol [Vitamin D3 (25 50 mcg PO HS@0803/24/22 03/24/22 History Mcg = 1000 Iu)] Furosemide [Lasix] 40 mg PO DAILY@0800 03/24/22 03/24/22 History Losartan [Cozaar] 25 mg PO HS@199903/24/22 03/24/22 History Venlafaxine HCl ER [Effexor Xr] 37.5 mg PO DAILY@0800 03/24/22 03/24/22 History carvediloL [Coreg] 3.125 mg PO BID@0800,199903/24/22 03/24/22 History traZODone HCL [Desyrel] 50 mg PO HS@199903/24/22 03/24/22 History Allergies Allergy/AdvReac Type Severity Reaction Status Date / Time No Known Allergies Allergy Verified 03/24/22 10:31 Physical Exam Vitals: Vital Signs Temp Pulse Resp BP Pulse Ox 03/24/22 12:20 68 03/24/22 12:11 78 03/24/22 12:00 74 14 102/74 97 03/24/22 11:30 88 22 105/70 95 03/24/22 11:00 89 21 109/86 97 03/24/22 10:00 85 22 107/69 97 03/24/22 09:37 97.6 F 97 16 110/79 97 Intake and Output 03/23/22 03/24/22 03/24/22 22:59 06:59 14:59 Other: Weight 144.4 kg Results 03/24/22 09:47 03/24/22 09:47 Cardiac Enzymes 03/24/22 03/24/22 Range/Units 09:47 09:47 AST 36 (14-36) U/L Troponin I 0.085 H* (0.000-0.034) ng/mL Coagulation 03/24/22 Range/Units 09:47 PT 10.5 (9.0-12.0) sec APTT 19.4 L (22.0-30.0) sec CBC 03/24/22 Range/Units 09:47 WBC 10.1 (3.8-10.6) k/uL RBC 4.51 (3.80-5.40) m/uL Hgb 15.6 (11.4-16.0) gm/dL Hct 45.5 (34.0-46.0) % Plt Count 230 (150-450) k/uL Comprehensive Metabolic Panel 03/24/22 Range/Units 09:47 Sodium 145 (137-145) mmol/L Potassium 4.2 (3.5-5.1) mmol/L Chloride 103 (98-107) mmol/L Carbon Dioxide 30 (22-30) mmol/L BUN 69 H (7-17) mg/dL Creatinine 1.17 H (0.52-1.04) mg/dL Glucose 284 H (74-99) mg/dL Calcium 9.3 (8.4-10.2) mg/dL AST 36 (14-36) U/L ALT 24 (4-34) U/L Alkaline Phosphatase 62 (38-126) U/L Total Protein 7.4 (6.3-8.2) g/dL Albumin 4.1 (3.5-5.0) g/dL Current Medications Generic Name Dose Route Start Last Admin Trade Name Gioq PRN Reason Stop Dose Admin Amiodarone HCl 200 mg 03/24/22 20:00 Amiodarone 200 Mg Tab PO BID@ [facility] Aspirin 81 mg 03/25/22 09:00 Aspirin 81 Mg PO DAILY [facility] Carvedilol 3.125 mg 03/24/22 20:00 Carvedilol 3.125 Mg Tab PO BID@ [facility] Furosemide 40 mg 03/25/22 08:00 Furosemide 40 Mg Tab PO DAILY@0800 [facility] Heparin Sodium (Porcine) 0 unit 03/24/22 12:25 Heparin Sodium 1,000 Un/Ml (10ml Vl) IV PER PROTOCOL PRN Low PTT Protocol Heparin Sodium/Sodium Chloride 250 mls @ 10 mls/hr 03/24/22 12:30 25,000 unit/ Sodium Chloride IV .Q24H [facility] Protocol 6.925 UNITS/KG/HR Losartan Potassium 25 mg 03/24/22 20:00 Losartan 25 Mg Tab PO HS@1999 [facility] Naloxone HCl 0.2 mg 03/24/22 12:02 Naloxone 0.4 Mg/Ml 1 Ml Vial IV Q2M PRN Opioid Reversal Pravastatin Sodium 10 mg 03/24/22 20:00 Pravastatin Sodium 20 Mg Tab PO HS@1999 [facility] Trazodone HCl 50 mg 03/24/22 20:00 Trazodone Hcl 50 Mg Tab PO HS@2000 [facility] Venlafaxine HCl 37.5 mg 03/25/22 08:00 Venlafaxine Hcl Er 37.5 Mg Cap PO DAILY@0800 [facility] Intake and Output 03/23/22 03/24/22 03/24/22 22:59 06:59 14:59 Other: Weight 144.4 kg Patient Weight 03/25/22 06:59 Weight 144.4 kg 03/24/22 09:47 03/24/22 09:47
[2022-03-24 13:31] LABS: Appearance,Urine Clear (Clear); Bilirubin,Urine Negative (Negative); Blood,Urine Negative (Negative); Color,Urine Light Yellow; Glucose,Urine (UA) Trace (Negative); Ketones,Urine Negative (Negative); Leukocyte Esterase,Urine Negative (Negative); Nitrite,Urine Negative (Negative); PH, Urine 7.5 (5.0-8.0); Protein,Urine Negative (Negative); Specific Gravity,Urine 1.016 (1.001-1.035); Urobilinogen,Urine <2.0 mg/dL (<2.0)
--- NOTE | 2022-03-24 14:47 | P.HPIM ---
History of Present Illness H&P Date: 03/24/22 History of Presenting Illness: Patient is a very pleasant 86-year-old female with a past medical history of systolic heart failure with previously known EF of 20-25 %, paroxysmal atrial fibrillation on anticoagulation with Eliquis, hypertension, and hyperlipidemia. She presented to the emergency department with a chief complaint of chest pain and shortness of breath. Family at bedside providing history. Family report patient has been overall not feeling well experiencing dizziness/lightheadedness, shortness of breath, fatigue, lethargy, and palpita tions for approximately 3 weeks. They state that she has been under evaluation by her [employer] hr[employer] developer, Dr. Moore and was found to be back in atrial fibrillation and that he changed up her medications discontinuing digoxin and starting her on amiodarone on 03/22/22. Patient and family at bedside reports this morning patient was having increased shortness of breath accompanied by pain to her midsternal chest and palpitations. Patient described this pain as a pressure and denied any radiation but also reports this has subsided. Patient and family at bedside denies any recent fevers, chills, diaphoresis, cough or congestion, nausea or vomiting, or experiencing any numbness/tingling/weakness/swelling in her extremities. She underwent full evaluation in the emergency department. EKG completed revealing atrial fibrillation with a controlled ventricular rate at 93 bpm with nonspecific T-wave changes/flattening of ST depression in leads 1 and aVL. Chest x-ray reviewed showing no signs of acute cardiopulmonary process, no vascular congestion noted. Labs were completed and reviewed. CBC unremarkable. BMP showing prerenal azotemia with BUN is 69, and creatinine of 1.17 with GFR 42. Hyperglycemia with glucose of 284, and elevated lactic acid of 3.8. Troponin also elevated at 0.085 and pro-BMP of 1710. Influenza A, influenza B, and Covid PCR were negative. Patient's presenting complaints and results discussed thoroughly with the ED physician. Patient has been accepted for admission under our services with consult to cardiology at this time. Review of systems: Pertinent positives and negatives as discussed in HPI, a complete review of systems was performed and all other systems are negative. Physical exam: Vital signs reviewed and stable. General: Nontoxic, no distress and appears stated age. Derm: Skin warm and dry, normal coloration for ethnicity. Head: Atraumatic, normocephalic and symmetric. Eyes: EOMs intact, no lid lag, and anicteric sclera Mouth: no lip lesions, mucus membranes moist Cardiovascular: Irregularly irregular rhythm with systolic murmur, positive posterior tibial pulses bilaterally, and cap refill < 2 seconds. Lungs: Respirations even, regular, and unlabored on room air. Lungs CTA bilaterally, no rhonchi, no rales, no wheezing, and no accessory muscle usage. Abdominal: soft, nontender to palpation, no guarding, no appreciable organomegaly Ext: ROM intact. No gross muscle atrophy, no edema, no contractures Neuro: Speech clear, face symmetrical and CN II-XII grossly intact with no noted focal neuro deficits Psych: Alert and oriented to person, place, time, and situation. Appropriate and pleasant affect. Assessment and Plan of Care: Chest pain, shortness of breath, and palpitations rule out acute coronary event Elevated troponins Paroxysmal atrial fibrillation Chronic systolic heart failure with previously known EF of 20-25 % Hypertension Hyperlipidemia -Cardiology consulted, appreciate further recommendations -Continue anticoagulation with Eliquis -Telemetry monitoring -Trend troponins -Cardiac diet -Aspirin, Eliquis, pravastatin, losartan, carvedilol, and amiodarone. Patient may resume Lasix 40 mg daily starting tomorrow. -Echocardiogram Elevated lactic acid -Likely secondary to episode of atrial fibrillation with RVR, we will administer a one-time 500 mL bolus of 0.9% normal saline and continue to monitor for improvement. Prerenal azotemia -Prerenal azotemia with BUN of 69, creatinine 1.17, and GFR 42. Patient does appear slightly dry and does take daily Lasix. Will administer a 500 mL bolus of 0.9% normal saline and hold off on today's Lasix dose and patient may resume tomorrow. Hyperglycemia -Patient and family deny any history of diabetes. We will continue to monitor as this is an isolated elevated blood glucose level and we will obtain hemoglobin A1c. The patient is admitted with an anticipated less than 2 midnight stay for evaluation of shortness of breath, chest pain, palpitations. CODE STATUS: DO NOT RESUSCITATE, no CPR, no intubation, but is okay with any medications or cardioversion. DVT prophylaxis: Eliquis Discussed with: Patient and patient's daughters at bedside Anticipated discharge date: Clinical course to determine Anticipated discharge place: Home A total of 48 minutes was spent on the care of this complex patient more than 50% of the time was spent in counseling and care coordination. I reviewed the documentation as provided by the TIA above, who is the original author of this note. I agree with the documented assessment and plan, with the following changes: none Past Medical History Past Medical History: Cancer, Chest Pain / Angina, Hyperlipidemia, Hypertension, Thyroid Disorder Additional Past Medical History / Comment(s): "IRREG HEART BEAT IN PAST", "EARLY SIGNS OF DEMENTIA",SKIN CANCER-HAD A SKIN GRAFT BY RT EYE, CHRONIC BACK PAIN,SCIATICA. 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 x3 c-sections, xe bladder suspension sx Past Anesthesia/Blood Transfusion Reactions: No Reported Reaction Past Psychological History: Anxiety, Depression Smoking Status: Never smoker Past Alcohol Use History: None Reported Past Drug Use History: None Reported - Past Family History Mother Family Medical History: Cancer Additional Family Medical History / Comment(s): breast cancer Father Family Medical History: Congestive Heart Failure (CHF) Additional Family Medical History / Comment(s): lived to be 101 Brother(s) Family Medical History: Cancer Additional Family Medical History / Comment(s): brain cancer Medications and Allergies Home Medications Medication Instructions Recorded Confirmed Type Pravastatin Sodium [Pravachol] 10 mg PO HS@199912/08/16 03/24/22 History Amiodarone [Cordarone] 200 mg PO BID@08,199903/24/22 03/24/22 History Apixaban [Eliquis] 2.5 mg PO BID@08,199903/24/22 03/24/22 History Cholecalciferol [Vitamin D3 (25 50 mcg PO HS@79903/24/22 03/24/22 History Mcg = 1000 Iu)] Furosemide [Lasix] 40 mg PO DAILY@0800 03/24/22 03/24/22 History Losartan [Cozaar] 25 mg PO HS@199903/24/22 03/24/22 History Venlafaxine HCl ER [Effexor Xr] 37.5 mg PO DAILY@79903/24/22 03/24/22 History carvediloL [Coreg] 3.125 mg PO BID@799,199903/24/22 03/24/22 History traZODone HCL [Desyrel] 50 mg PO HS@199903/24/22 03/24/22 History Allergies Allergy/AdvReac Type Severity Reaction Status Date / Time No Known Allergies Allergy Verified 03/24/22 10:31 Physical Exam Osteopathic Statement: *. No significant issues noted on an osteopathic structural exam other than those noted in the History and Physical/Consult. Vitals: Vital Signs Temp Pulse Resp BP Pulse Ox 03/24/22 12:20 68 03/24/22 12:11 78 03/24/22 12:00 74 14 102/74 97 03/24/22 11:30 88 22 105/70 95 03/24/22 11:00 89 21 109/86 97 03/24/22 10:00 85 22 107/69 97 03/24/22 09:37 97.6 F 97 16 110/79 97 Intake and Output 03/23/22 03/24/22 03/24/22 22:59 06:59 14:59 Other: Weight 144.4 kg Results CBC & Chem 7: 03/25/22 08:08 03/25/22 08:08 Labs: Abnormal Lab Results - Last 24 Hours (Table) 03/24/22 03/24/22 03/24/22 Range/Units 09:47 09:47 09:47 MCV 100.8 H (80.0-100.0) fL APTT 19.4 L (22.0-30.0) sec BUN 69 H (7-17) mg/dL Creatinine 1.17 H (0.52-1.04) mg/dL Glucose 284 H (74-99) mg/dL Plasma Lactic Acid Jose (0.7-2.0) mmol/L Troponin I (0.000-0.034) ng/mL 03/24/22 03/24/22 Range/Units 09:47 09:47 MCV (80.0-100.0) fL APTT (22.0-30.0) sec BUN (7-17) mg/dL Creatinine (0.52-1.04) mg/dL Glucose (74-99) mg/dL Plasma Lactic Acid Jose 3.8 H* (0.7-2.0) mmol/L Troponin I 0.085 H* (0.000-0.034) ng/mL
[2022-03-24] MEDS: MAG HYDROX/AL HYDROX/SIMETH 30 ML, LIDOCAINE VISCOUS 2% 30 ML, diphenhydrAMINE ELIXIR 7... PO SCH ×8 (18:44→20:48)
[2022-03-24] MEDS: APIXABAN 2.5 MG TABLET PO SCH (20:42)
[2022-03-24] MEDS: AMIODARONE 200 MG TAB PO SCH (20:42)
[2022-03-24] MEDS: traZODone HCL 50 MG TAB PO SCH (20:42)
[2022-03-24] MEDS: PRAVASTATIN SODIUM 20 MG TAB PO SCH (20:42)
[2022-03-24] MEDS: LOSARTAN 25 MG TAB PO SCH (20:43)
[2022-03-24] MEDS: carvediloL 3.125 MG TAB PO SCH (20:43)
[2022-03-25] MEDS: VENLAFAXINE HCL ER 37.5 MG CAP PO SCH (08:25)
[2022-03-25] MEDS: carvediloL 3.125 MG TAB PO SCH ×2 (08:25→21:40)
[2022-03-25] MEDS: FUROSEMIDE 40 MG TAB PO SCH (08:25)
[2022-03-25] MEDS: MAG HYDROX/AL HYDROX/SIMETH 30 ML, LIDOCAINE VISCOUS 2% 30 ML, diphenhydrAMINE ELIXIR 7... PO SCH ×12 (08:26→21:46)
[2022-03-25] MEDS: APIXABAN 2.5 MG TABLET PO SCH ×2 (08:26→21:40)
[2022-03-25] MEDS: AMIODARONE 200 MG TAB PO SCH (08:26)
[2022-03-25 08:37] LABS: Basophils % (A) 0 %; Eosinophils # (A) 0.1 k/uL (0-0.7); Eosinophils % (A) 1 %; HGB 14.7 gm/dL (11.4-16.0); Lymphocytes # (A) 2.4 k/uL (1.0-4.8); Lymphocytes % (A) 24 %; MCH 34.3 pg (25.0-35.0); MCHC 33.5 g/dL (31.0-37.0); MCV 102.5 fL (80.0-100.0); Macrocytosis Slight; Mean Platelet Volume 8.2; Monocytes # (A) 0.4 k/uL (0-1.0); Monocytes % (A) 4 %; Neutrophils # (A) 6.8 k/uL (1.3-7.7); Neutrophils % (A) 69 %; Platelet Count 220 k/uL (150-450); RBC 4.29 m/uL (3.80-5.40); RDW 13.3 % (11.5-15.5); WBC 9.9 k/uL (3.8-10.6)
[2022-03-25 08:56] LABS: Calcium 8.8 mg/dL (8.4-10.2); Potassium 3.6 mmol/L (3.5-5.1)
[2022-03-25] MEDS ORDERED: ASPIRIN 81 MG PO SCH (09:00)
--- NOTE | 2022-03-25 11:08 | P.PN ---
Subjective Progress Note Date: 03/25/22 PROGRESS NOTE The patient is an 78 atrial female who presented with progressive fatigue and lack of energy and shortness of breath. She has a history of atrial fibrillation, hyperlipidemia and hypertension. She appears to be more awake and alert today. She denies any chest discomfort, dizziness or palpitations. She denies any nausea. Medications: Amiodarone 200 mg twice a day, Coreg 3.125 mg twice a day, Lasix 40 mg daily, trazodone, Cozaar 25 mg daily, pravastatin 10 mg daily,Eliquis 2.5 mg twice a day PHYSICAL EXAMINATION: Blood pressure 135/80 heart rate 80 LUNGS: Clear to auscultation HEART: Irregular rate and rhythm, S1, S2. No S3. systolic ejection murmur ABDOMEN: Soft, nontender, no organomegaly EXTREMETIES: No edema LAB: BUN 67, creatinine 1.29. Hemoglobin 14.7. Plasma lactic acid 1.4 IMPRESSION: 1. Atrial fibrillation, rate controlled 2. Change in mental status 3. Chronic kidney disease 4. Mild troponin elevation with no evidence of acute coronary syndrome, type II myocardial injury 5. History of hyperlipidemia 6. History of hypertension PLAN: 1. Obtain an echocardiogram with Doppler 2. Decrease amiodarone to 200 mg once a day 3. Follow her renal functions 4. Depending on her progress further recommendations will be made Objective - Vital Signs Vital signs: Vital Signs Temp 98.2 F 03/25/22 04:00 Pulse 98 03/25/22 08:00 Resp 16 03/25/22 08:00 BP 135/86 03/25/22 08:00 Pulse Ox 96 03/25/22 08:00 FiO2 Intake & Output 03/24/22 03/25/22 03/25/22 18:59 06:59 18:59 Intake Total 122 Output Total 450 400 Balance -328 -400 Weight 144.4 kg Intake: Oral 122 Output: Urine 450 400 Other: Voiding Method Bedside Commode Bedside Commode Diaper Diaper # Voids 1 - Labs CBC & Chem 7: 03/25/22 08:08 03/25/22 08:08 Labs: Abnormal Lab Results - Last 24 Hours (Table) 03/24/22 03/24/22 03/24/22 Range/Units 09:47 12:50 12:50 MCV (80.0-100.0) fL APTT 19.4 L (22.0-30.0) sec Sodium (137-145) mmol/L Carbon Dioxide (22-30) mmol/L BUN (7-17) mg/dL Creatinine (0.52-1.04) mg/dL Glucose (74-99) mg/dL Plasma Lactic Acid Jose 3.4 H* (0.7-2.0) mmol/L Troponin I 0.070 H* (0.000-0.034) ng/mL Urine Glucose (UA) (Negative) 03/24/22 03/24/22 03/24/22 Range/Units 13:22 16:05 16:05 MCV (80.0-100.0) fL APTT (22.0-30.0) sec Sodium (137-145) mmol/L Carbon Dioxide (22-30) mmol/L BUN (7-17) mg/dL Creatinine (0.52-1.04) mg/dL Glucose (74-99) mg/dL Plasma Lactic Acid Jose 2.1 H* (0.7-2.0) mmol/L Troponin I 0.089 H* (0.000-0.034) ng/mL Urine Glucose (UA) Trace H (Negative) 03/24/22 03/25/22 03/25/22 Range/Units 19:05 08:08 08:08 MCV 102.5 H (80.0-100.0) fL APTT (22.0-30.0) sec Sodium 147 H (137-145) mmol/L Carbon Dioxide 34 H (22-30) mmol/L BUN 67 H (7-17) mg/dL Creatinine 1.29 H (0.52-1.04) mg/dL Glucose 139 H (74-99) mg/dL Plasma Lactic Acid Jose 3.1 H* (0.7-2.0) mmol/L Troponin I (0.000-0.034) ng/mL Urine Glucose (UA) (Negative)
[2022-03-25] MEDS ORDERED: LACTULOSE 20 GM/30 ML CUP PO ONE (11:30)
[2022-03-25] MEDS: polyethylene glycoL 3350 17 GM POWD.PACK PO SCH (12:11)
[2022-03-25 12:58] VITALS: BMI 51.3
--- NOTE | 2022-03-25 14:50 | P.PN ---
Subjective Progress Note Date: 03/25/22 Hospital course: Patient is a very pleasant 86-year-old female with a past medical history of systolic heart failure with previously known EF of 20-25 %, paroxysmal atrial fibrillation on anticoagulation with Eliquis, hypertension, and hyperlipidemia. She presented to the emergency department with a chief complaint of chest pain and shortness of breath. Family at bedside providing history. Family report patient has been overall not feeling well experiencing dizziness/lightheadedness, shortness of breath, fatigue, lethargy, and palpitations for approximately 3 weeks. They state that she has been under evaluation by her assembler wire group, Dr. Moore and was found to be back in atrial fibrillation and that he changed up her medications discontinuing digoxin and starting her on amiodarone on 03/22/22. Patient and family at bedside reports this morning patient was having increased shortness of breath accompanied by pain to her midsternal chest and palpitations. Patient described this pain as a pressure and denied any radiation but also reports this has subsided. Patient and family at bedside denies any recent fevers, chills, diaphoresis, cough or congestion, nausea or vomiting, or experiencing any numbness/tingling/weakness/swelling in her extremities. She underwent full evaluation in the emergency department. EKG completed revealing atrial fib rillation with a controlled ventricular rate at 93 bpm with nonspecific T-wave changes/flattening of ST depression in leads 1 and aVL. Chest x-ray reviewed showing no signs of acute cardiopulmonary process, no vascular congestion noted. Labs were completed and reviewed. CBC unremarkable. BMP showing prerenal azotemia with BUN is 69, and creatinine of 1.17 with GFR 42. Hyperglycemia with glucose of 284, and elevated lactic acid of 3.8. Troponin also elevated at 0.085 and pro-BMP of 1710. Influenza A, influenza B, and Covid PCR were negative. Patient's presenting complaints and results discussed thoroughly with the ED physician. Patient was accepted for admission under our services with consult to cardiology. Troponins trended overnight and remained elevated but flat at 0.085, 0.070, and 0.089. Lactic acidosis resolved status post 500 mL bolus was completed. Discussed with assembler wire group holding diuretic, however cardiology recommending to continue Lasix at this time. Physical exam: Patient seen and fully evaluated at bedside this morning. Patient's daughter also at bedside. Patient's condition stable. Patient reports this morning that she does not feel well, but denies any further episodes of chest pain or palpitations. Troponins were trended overnight and remained elevated but flat at 0.085, 0.070, and 0.089. Lactic acidosis resolved status post 500 mL bolus was completed. Patient appears slightly dry and discussed with assembler wire group holding of diuretic, however cardiology recommending to continue Lasix at this time. Morning labs reviewed revealing mild hypernatremia with sodium of 147, BUN of 67, and creatinine of 1.29 with GFR of 37. Cardiology decreased amiodarone to 200 mg daily. Patient remains in atrial fibrillation with a controlled ventricular rate. Vital signs unremarkable with morning blood pressure 135/86, heart rate 98, and respiratory rate 16 with SpO2 of 96% on room air. Vital signs reviewed and stable. General: Nontoxic, no distress and appears stated age. Derm: Skin warm and dry, normal coloration for ethnicity. Head: Atraumatic, normocephalic and symmetric. Eyes: EOMs intact, no lid lag, and anicteric sclera Mouth: no lip lesions, mucus membranes dry Cardiovascular: Irregularly irregular rhythm with systolic murmur, positive posterior tibial pulses bilaterally, and cap refill < 2 seconds. Lungs: Respirations even, regular, and unlabored on room air. Lungs CTA bilaterally, no rhonchi, no rales, no wheezing, and no accessory muscle usage. Abdominal: soft, nontender to palpation, no guarding, no appreciable organomegaly Ext: ROM intact. No gross muscle atrophy, no edema, no contractures Neuro: Speech clear, face symmetrical and CN II-XII grossly intact with no noted focal neuro deficits Psych: Alert and oriented to person, place, time, and situation. Appropriate and pleasant affect. Assessment and Plan of Care: Chest pain, shortness of breath, and palpitations. Acute coronary event was ruled out. Elevated troponins, likely resulting from a type II myocardial infarction secondary to reports of atrial fibrillation with RVR Paroxysmal atrial fibrillation, currently maintaining controlled ventricular rate Chronic systolic heart failure with previously known EF of 20-25 % Hypertension Hyperlipidemia -Cardiology following, decreased amiodarone to 200 mg daily -Continue anticoagulation with Eliquis -Telemetry monitoring -Trend troponins -Cardiac diet -Continue cardiac medication regimen with Aspirin, Eliquis, furosemide, pravastatin, losartan, carvedilol, and amiodarone. -Echocardiogram Lactic acidosis, resolved -Likely secondary to episode of atrial fibrillation with RVR, resolved after a one-time 500 mL bolus of 0.9% normal saline. Prerenal azotemia Hypernatremia -Patient appears slightly dry and discussed with assembler wire group holding of diuretic, however cardiology recommending to continue Lasix at this time. -We will continue to monitor closely with repeat a.m. labs. This was discussed with patient and patient's daughter at bedside patient encouraged oral intake of fluids. Hyperglycemia -Patient and family deny any history of diabetes. We will continue to monitor blood glucose levels as this is a one-time only isolated elevated blood glucose level, upon review of chart patient's blood glucose levels normally within normal limits. -Hemoglobin A1c to be obtained.. CODE STATUS: DO NOT RESUSCITATE, no CPR, no intubation, but is okay with any medications or cardioversion. DVT prophylaxis: Eliquis Discussed with: Patient, patient's daughters at bedside. Vice President Lending and RN. Anticipated discharge date: Clinical course to determine Anticipated discharge place: Home A total of 36 minutes was spent on the care of this complex patient more than 50% of the time was spent in counseling and care coordination. I reviewed the documentation as provided by the TIA above, who is the original author of this note. I agree with the documented assessment and plan, with the following changes: none Objective - Vital Signs Vital signs: Vital Signs Temp 98.2 F 03/25/22 04:00 Pulse 85 03/25/22 04:00 Resp 12 03/25/22 04:00 BP 116/74 03/25/22 04:00 Pulse Ox 98 03/25/22 07:26 FiO2 Intake & Output 03/24/22 03/25/22 03/25/22 18:59 06:59 18:59 Intake Total 122 Output Total 450 400 Balance -328 -400 Weight 144.4 kg Intake: Oral 122 Output: Urine 450 400 Other: Voiding Method Bedside Commode Bedside Commode Diaper Diaper # Voids 1 - Labs CBC & Chem 7: 03/25/22 08:08 03/25/22 08:08 Labs: Abnormal Lab Results - Last 24 Hours (Table) 03/24/22 03/24/22 03/24/22 Range/Units 09:47 09:47 09:47 MCV 100.8 H (80.0-100.0) fL APTT 19.4 L (22.0-30.0) sec BUN 69 H (7-17) mg/dL Creatinine 1.17 H (0.52-1.04) mg/dL Glucose 284 H (74-99) mg/dL Plasma Lactic Acid Jose (0.7-2.0) mmol/L Troponin I (0.000-0.034) ng/mL Urine Glucose (UA) (Negative) 03/24/22 03/24/22 03/24/22 Range/Units 09:47 09:47 12:50 MCV (80.0-100.0) fL APTT (22.0-30.0) sec BUN (7-17) mg/dL Creatinine (0.52-1.04) mg/dL Glucose (74-99) mg/dL Plasma Lactic Acid Jose 3.8 H* (0.7-2.0) mmol/L Troponin I 0.085 H* 0.070 H* (0.000-0.034) ng/mL Urine Glucose (UA) (Negative) 03/24/22 03/24/22 03/24/22 Range/Units 12:50 13:22 16:05 MCV (80.0-100.0) fL APTT (22.0-30.0) sec BUN (7-17) mg/dL Creatinine (0.52-1.04) mg/dL Glucose (74-99) mg/dL Plasma Lactic Acid Jose 3.4 H* (0.7-2.0) mmol/L Troponin I 0.089 H* (0.000-0.034) ng/mL Urine Glucose (UA) Trace H (Negative) 03/24/22 03/24/22 Range/Units 16:05 19:05 MCV (80.0-100.0) fL APTT (22.0-30.0) sec BUN (7-17) mg/dL Creatinine (0.52-1.04) mg/dL Glucose (74-99) mg/dL Plasma Lactic Acid Jose 2.1 H* 3.1 H* (0.7-2.0) mmol/L Troponin I (0.000-0.034) ng/mL Urine Glucose (UA) (Negative)
--- NOTE | 2022-03-25 15:45 | CA ---
Transthoracic Echo Report Name: Marcie Luo Age: 86 Gender: F : 1935 Exam Date: 03/25/2022 14:15 Exam Location: [facility] Ht (in): 66 Wt (lb): 150 Ordering Physician: Yola Burgess Attending/Referring Phys: [id number], Aditya [employer] Crew Officer Marge Campos RDCS Procedure CPT: Indications: LV function Cardiac Hx: Technical Quality: Fair Contrast 1: Total Dose (mL): Contrast 2: Total Dose (mL): MEASUREMENTS (Male / Female) Normal Values 2D ECHO LV Diastolic Diameter PLAX 3.3 cm 4.2 - 5.9 / 3.9 - 5.3 cm LV Systolic Diameter PLAX 2.0 cm IVS Diastolic Thickness 1.7 cm 0.6 - 1.0 / 0.6 - 0.9 cm LVPW Diastolic Thickness 1.8 cm 0.6 - 1.0 / 0.6 - 0.9 cm LV Relative Wall Thickness 1.1 RV Internal Dim ED PLAX 2.8 cm LA Volume 60.4 cm??? 18 - 58 / 22 - 52 cm??? M-MODE Aortic Root Diameter MM 3.3 cm LA Systolic Diameter MM 3.4 cm LA Ao Ratio MM 1.0 AV Cusp Separation MM 2.1 cm DOPPLER AV Peak Velocity 129.9 cm/s AV Peak Gradient 6.8 mmHg AV Mean Velocity 93.2 cm/s AV Mean Gradient 3.8 mmHg AV Velocity Time Integral 25.2 cm AI Peak Velocity 505.5 cm/s AI Peak Gradient 102.2 mmHg AI Pressure Half Time 785.0 ms LVOT Peak Velocity 109.6 cm/s LVOT Peak Gradient 4.8 mmHg TR Peak Velocity 281.6 cm/s TR Peak Gradient 31.7 mmHg Right Ventricular Systolic Press 36.2 mmHg FINDINGS Left Ventricle Severely increased left ventricular wall thickness. Normal left ventricular systolic function with no obvious regional wall motion abnormalities. Left ventricular cavity size normal. Left ventricular ejection fraction is estimated at 55-60 %. Right Ventricle Normal right ventricular size and function. Mild pulmonary hypertension. Right Atrium Normal right atrial size. Left Atrium Mildly increased left atrial volume. Mildly increased left atrial area. Mitral Valve Structurally normal mitral valve. Mitral valve thickened. Mild mitral annular calcification. Tgoj-wk-brlnyyed mitral regurgitation. Aortic Valve Trileaflet aortic valve. No aortic stenosis. Mild aortic regurgitation. Tricuspid Valve Structurally normal tricuspid valve. Mild tricuspid regurgitation. Pulmonic Valve Structurally normal pulmonic valve. Pericardium No pericardial effusion. Aorta Normal size aortic root and proximal ascending aorta. CONCLUSIONS 1. Normal left ventricle size and systolic function with left ventricle hypertrophy 2. [id number] mitral regurgitation 3. Mild aortic and tricuspid regurgitation with mild pulmonary hypertension Previewed by: Dr. David Lehman MD (Electronically Signed) Final Date: 25 March 2022 15:44
[2022-03-25] MEDS ORDERED: MORPHINE SULFATE 2 MG/ML SYRINGE IVP STA (17:16)
[2022-03-25] MEDS: PRAVASTATIN SODIUM 20 MG TAB PO SCH (21:40)
[2022-03-25] MEDS: traZODone HCL 50 MG TAB PO SCH (21:41)
[2022-03-26] MEDS: LOSARTAN 25 MG TAB PO SCH ×2 (00:20→20:59)
[2022-03-26 08:19] LABS: HCT 43.1 % (34.0-46.0); HGB 14.6 gm/dL (11.4-16.0); MCH 34.7 pg (25.0-35.0); MCHC 33.8 g/dL (31.0-37.0); MCV 102.7 fL (80.0-100.0); Macrocytosis Slight; Mean Platelet Volume 8.6; Platelet Count 204 k/uL (150-450); RDW 13.2 % (11.5-15.5); WBC 9.6 k/uL (3.8-10.6)
[2022-03-26 08:36] LABS: Potassium 3.8 mmol/L (3.5-5.1)
[2022-03-26 08:37] LABS: Albumin 3.7 g/dL (3.5-5.0); Magnesium 2.3 mg/dL (1.6-2.3); Total Bilirubin 0.7 mg/dL (0.2-1.3); Total Protein 6.8 g/dL (6.3-8.2)
[2022-03-26] MEDS: FUROSEMIDE 40 MG TAB PO SCH (09:12)
[2022-03-26] MEDS: VENLAFAXINE HCL ER 37.5 MG CAP PO SCH (09:12)
[2022-03-26] MEDS: AMIODARONE 200 MG TAB PO SCH (09:13)
[2022-03-26] MEDS: APIXABAN 2.5 MG TABLET PO SCH ×2 (09:13→20:59)
[2022-03-26] MEDS: MAG HYDROX/AL HYDROX/SIMETH 30 ML, LIDOCAINE VISCOUS 2% 30 ML, diphenhydrAMINE ELIXIR 7... PO SCH ×12 (09:13→21:00)
[2022-03-26] MEDS: carvediloL 3.125 MG TAB PO SCH ×2 (09:13→20:59)
[2022-03-26] MEDS: polyethylene glycoL 3350 17 GM POWD.PACK PO SCH (09:13)
[2022-03-26] MEDS ORDERED: PROCHLORPERAZINE INJ 10 MG/2 ML VIAL IVP PRN (09:58)
[2022-03-26] MEDS ORDERED: SODIUM CHLORIDE 0.9% 500 ML 500 ML IV ONE (09:58)
--- NOTE | 2022-03-26 12:03 | P.PN ---
Subjective Progress Note Date: 03/26/22 PROGRESS NOTE The patient is an 78 atrial female who presented with progressive fatigue and lack of energy and shortness of breath. She has a history of atrial fibrillation, hyperlipidemia and hypertension. She appears to be more awake and alert today. She denies any chest discomfort, dizziness or palpitations. She denies any nausea. March 26: The patient feels the same. She continues to be in atrial ablation was controlled ventricular response. Her renal function are better today. She has no chest discomfort, dizziness or palpitations. The family is considering palliative care. Her echocardiogram showed a normal left ventricle systolic function was mild to moderate mitral and mild aortic regurgitation Medications: Amiodarone 200 mg once a day, Coreg 3.125 mg twice a day, trazodone, Cozaar 25 mg daily, pravastatin 10 mg daily,Eliquis 2.5 mg twice a day PHYSICAL EXAMINATION: Blood pressure 110/60 heart rate 80 LUNGS: Clear to auscultation HEART: Irregular rate and rhythm, S1, S2. No S3. systolic ejection murmur at the apex ABDOMEN: Soft, nontender, no organomegaly EXTREMETIES: No edema LAB: BUN 65, creatinine 1.17. Hemoglobin 14.6. IMPRESSION: 1. Atrial fibrillation, rate controlled 2. Change in mental status 3. Chronic kidney disease 4. Mild troponin elevation with no evidence of acute coronary syndrome, type II myocardial injury 5. History of hyperlipidemia 6. History of hypertension PLAN: 1. Continue present therapy 2. Awaiting the family's decision regarding palliative care Objective - Vital Signs Vital signs: Vital Signs Temp 97.8 F 03/26/22 06:59 Pulse 84 03/26/22 08:00 Resp 16 03/26/22 08:00 BP 97/61 03/26/22 08:00 Pulse Ox 99 03/26/22 08:00 FiO2 Intake & Output 03/25/22 03/26/22 03/26/22 18:59 06:59 18:59 Intake Total 118 257 180 Output Total 350 125 400 Balance -232 132 -220 Weight 144.4 kg Intake: IV 20 Invasive Line 2 20 Oral 118 237 180 Output: Urine 350 125 400 Other: Voiding Method Bedside Commode Bedside Commode Bedside Commode Diaper Diaper Diaper # Bowel Movements 2 1 - Labs CBC & Chem 7: 03/26/22 07:23 03/26/22 07:23 Labs: Abnormal Lab Results - Last 24 Hours (Table) 03/26/22 03/26/22 Range/Units 07:23 07:23 MCV 102.7 H (80.0-100.0) fL BUN 65 H (7-17) mg/dL Creatinine 1.17 H (0.52-1.04) mg/dL Glucose 142 H (74-99) mg/dL
--- NOTE | 2022-03-26 12:26 | P.PN ---
Subjective Progress Note Date: 03/26/22 Hospital course: Patient is a very pleasant 86-year-old female with a past medical history of systolic heart failure with previously known EF of 20-25 %, paroxysmal atrial fibrillation on anticoagulation with Eliquis, hypertension, and hyperlipidemia. She presented to the emergency department with a chief complaint of chest pain and shortness of breath. Family at bedside providing history. Family report patient has been overall not feeling well experiencing dizziness/lightheadedness, shortness of breath, fatigue, lethargy, and palpitations for approximately 3 weeks. They state that she has been under evaluation by her hot plate plywood press laborer, Dr. Moore and was found to be back in atrial fibrillation and that he changed up her medications discontinuing digoxin and starting her on amiodarone on 03/22/22. Patient and family at bedside reports this morning patient was having increased shortness of breath accompanied by pain to her midsternal chest and palpitations. Patient described this pain as a pressure and denied any radiation but also reports this has subsided. Patient and family at bedside denies any recent fevers, chills, diaphoresis, cough or congestion, nausea or vomiting, or experiencing any numbness/tingling/weakness/swelling in her extremities. She underwent full evaluation in the emergency department. EKG completed revealing atrial fib rillation with a controlled ventricular rate at 93 bpm with nonspecific T-wave changes/flattening of ST depression in leads 1 and aVL. Chest x-ray reviewed showing no signs of acute cardiopulmonary process, no vascular congestion noted. Labs were completed and reviewed. CBC unremarkable. BMP showing prerenal azotemia with BUN is 69, and creatinine of 1.17 with GFR 42. Hyperglycemia with glucose of 284, and elevated lactic acid of 3.8. Troponin also elevated at 0.085 and pro-BMP of 1710. Influenza A, influenza B, and Covid PCR were negative. Patient's presenting complaints and results discussed thoroughly with the ED physician. Patient was accepted for admission under our services with consult to cardiology. Troponins trended overnight and remained elevated but flat at 0.085, 0.070, and 0.089. Lactic acidosis resolved status post 500 mL bolus was completed. Physical exam: Patient seen and fully evaluated at bedside this morning. Patient's granddaughter also at bedside. Patient currently with dry heaves and reports significant nausea and overall states she is just "not feeling well." Patient currently denies experiencing chest pain, palpitations, or shortness of breath but reports just a little while ago while walking to the bathroom she experienced significant chest pain and palpitations. She has only had a documented 400 mL of urinary output over the past 24 hours. Morning labs reviewed. Sodium 145, BUN 65, and creatinine of 1.17. Clinically patient appears dry. Lasix discontinued at this time. Order placed for antiemetic for reports of nausea. Patient given a 500 mL bolus of 0.9% normal saline. Patient's granddaughter at bedside also requesting more information regarding possible hospice/palliative care. States they would like to take patient home to be with her . Orders place for consult to palliative care and hospice at this time. Discussed with cardiology discontinuing of diuretic and giving patient a small bolus of fluids and also informed them of patient and family's request/wishes for palliative/hospice care at this time. Reviewed echocardiogram completed yesterday afternoon which reports a preserved EF of 55- 60%. Vital signs reviewed and stable. General: Nontoxic, mild distress and appears stated age. Derm: Skin warm and dry, normal coloration for ethnicity. Patient flushed. Poor skin turgor. Head: Atraumatic, normocephalic and symmetric. Eyes: EOMs intact, no lid lag, and anicteric sclera Mouth: no lip lesions, mucus membranes dry, patient does have areas of irritation/blisters in mouth from dentures. Cardiovascular: Irregularly irregular rhythm with systolic murmur, positive posterior tibial pulses bilaterally, and cap refill < 2 seconds. Lungs: Respirations even, regular, and unlabored on room air. Lungs CTA bilaterally, no rhonchi, no rales, no wheezing, and no accessory muscle usage. Abdominal: soft, nontender to palpation, no guarding, no appreciable organomegaly Ext: ROM intact. No gross muscle atrophy, no edema, no contractures Neuro: Speech clear, face symmetrical and CN II-XII grossly intact with no noted focal neuro deficits Psych: Alert and oriented to person, place, time, and situation. Appropriate and pleasant affect. Assessment and Plan of Care: Chest pain, shortness of breath, and palpitations. Acute coronary event was ruled out. Elevated troponins, likely resulting from a type II myocardial infarction secondary to reports of atrial fibrillation with RVR Paroxysmal atrial fibrillation, currently maintaining controlled ventricular rate Chronic systolic heart failure with previously known EF of 20-25 %, echocardiogram completed revealing improved EF of 55-60% Hypertension Hyperlipidemia -Cardiology following, they decreased amiodarone to 200 mg daily and patient has been maintaining controlled ventricular rate upon reviewing documentation in discussing with RN. -Continue anticoagulation with Eliquis -Telemetry monitoring, discussed with RN reports no further runs of RVR -I's and O's reviewed, patient with only 400 mL of urinary output over the past 24 hours. She appears dry. Sodium 145, BUN 65, and creatinine 1.17. Lasix discontinued and patient given a 500 mL bolus. -Continue cardiac medication regimen with Aspirin, Eliquis, pravastatin, losartan, carvedilol, and amiodarone. -Echocardiogram report reviewed, showing a preserved EF of 55-60%, mild to moderate mitral regurgitation, mild aortic and tricuspid regurgitation, and mild pulmonary hypertension. Lactic acidosis, resolved -Likely secondary to episode of atrial fibrillation with RVR, resolved after a one-time 500 mL bolus of 0.9% normal saline. Prerenal azotemia Hypernatremia -I's and O's reviewed, patient with only 400 mL of urinary output over the past 24 hours. She appears dry. Sodium 145, BUN 65, and creatinine 1.17. Lasix discontinued and patient given a 500 mL bolus. Hyperglycemia -Patient and family deny any history of diabetes. We will continue to monitor blood glucose levels as this is a one-time only isolated elevated blood glucose level, upon review of chart patient's blood glucose levels normally within normal limits. -Hemoglobin A1c to be obtained.. Hospice and palliative care consult -Family requesting to take patient home so she can be with her as she is requesting. Had long discussion regarding both palliative and hospice care and consults placed at this time. Patient and Family to discuss further and make decision. CODE STATUS: DO NOT RESUSCITATE, no CPR, no intubation, but is okay with any medications or cardioversion. DVT prophylaxis: Eliquis Discussed with: Patient, patient's granddaughter at bedside. Mine Car Dispatcher and RN. Anticipated discharge date: Clinical course to determine, consulted palliative and hospice care. Anticipated discharge place: Home with palliative or hospice care per patient family's request A total of 37 minutes was spent on the care of this complex patient more than 50% of the time was spent in counseling and care coordination. Brice Ragland CAR PILOT rendered care for this patient independently, reviewed the findings and plan as documented in the note above. I did not physically speak with or examine the patient on this date. Objective - Vital Signs Vital signs: Vital Signs Temp 97.8 F 03/26/22 06:59 Pulse 86 03/26/22 06:59 Resp 18 03/26/22 06:59 BP 110/69 03/26/22 06:59 Pulse Ox 99 03/26/22 07:44 FiO2 Intake & Output 03/25/22 03/26/22 03/26/22 18:59 06:59 18:59 Intake Total 118 257 Output Total 350 125 Balance -232 132 Weight 144.4 kg Intake: IV 20 Invasive Line 2 20 Oral 118 237 Output: Urine 350 125 Other: Voiding Method Bedside Commode Bedside Commode Diaper Diaper # Bowel Movements 2 1 - Labs CBC & Chem 7: 03/26/22 07:23 03/26/22 07:23 Labs: Abnormal Lab Results - Last 24 Hours (Table) 03/25/22 03/25/22 03/26/22 Range/Units 08:08 08:08 07:23 MCV 102.5 H 102.7 H (80.0-100.0) fL Sodium 147 H (137-145) mmol/L Carbon Dioxide 34 H (22-30) mmol/L BUN 67 H (7-17) mg/dL Creatinine 1.29 H (0.52-1.04) mg/dL Glucose 139 H (74-99) mg/dL
[2022-03-26] MEDS: PRAVASTATIN SODIUM 20 MG TAB PO SCH (20:59)
[2022-03-26] MEDS: traZODone HCL 50 MG TAB PO SCH (20:59)
[2022-03-27 03:35] VITALS: RESP 16
[2022-03-27] MEDS: APIXABAN 2.5 MG TABLET PO SCH (07:56)
[2022-03-27] MEDS: polyethylene glycoL 3350 17 GM POWD.PACK PO SCH (07:56)
[2022-03-27] MEDS: AMIODARONE 200 MG TAB PO SCH (07:56)
[2022-03-27] MEDS: carvediloL 3.125 MG TAB PO SCH (07:56)
[2022-03-27] MEDS: VENLAFAXINE HCL ER 37.5 MG CAP PO SCH (07:57)
[2022-03-27] MEDS: MAG HYDROX/AL HYDROX/SIMETH 30 ML, LIDOCAINE VISCOUS 2% 30 ML, diphenhydrAMINE ELIXIR 7... PO SCH ×4 (07:58)
--- NOTE | 2022-03-27 09:48 | P.PN ---
Subjective Progress Note Date: 03/27/22 HISTORY OF PRESENT ILLNESS: This is a 86-year-old female with a past medical history significant for hypertension, hyperlipidemia, paroxysmal atrial fibrillation, and congestive heart failure. Patient follows with Dr. Moore in the office. We have been asked to see the patient in consultation for shortness of breath. Patient's family is at the bedside and providing majority of the history. Patient's family members report that the patient has been sleeping all the time recently and overall not feeling well. They state this has been going on for the past month. She also reports some shortness of breath this morning. The patient's family also reports that the patient complains of chest pain when she is walking. She currently denies chest pain at time of examination. The patient was seen in the cardiology office by Dr. Moore on 03/22/2022. The patient was found to be in atrial fibrillation with a heart rate in the low 100s. Patients digoxin was discontinued. Her coreg was increased to BID dosing, instead of daily dosing. She was started on oral amiodarone 200mg BID. Plan was for possible possible electrical cardioversion if patients symptoms did not resolve. EKG on admission reveals atrial fibrillation with controlled ventricular rates. * Chest xray COPD. No acute cardiopulmonary process. * Laboratory data: WBC 10.1. Hemoglobin 15.6. Platelet count 230. Sodium 145. Potassium 4.2. BUN 69. Creatinine 1.17. Lactic acid 3.8. Troponin 0.085. ProBNP 1710. * Current home cardiac medications include amiodarone 200 mg twice a day, carvedilol 3.125 mg twice a day, pravastatin 10 mg at night, losartan 25 mg at night, Lasix 40 mg daily, and Eliquis 2.5mg BID * Echocardiogram completed in May 2018 revealed normal LV systolic function. Mildly dilated left and right atrium. Mild to moderate AR. Moderate MR. Mild TR. 03/27/2022 Patient examined this morning at the bedside. Patients family members present. Patient denies any chest pain or pressure. She denies shortness of breath. She denies dizziness or lightheadedness. She denies palpitations. She states that she slept well overnight. Echocardiogram completed revealing normal left ventricular systolic function with [id number] mitral and mild aortic regurgitation. PHYSICAL EXAM: VITAL SIGNS: Reviewed. GENERAL: Well-developed in no acute distress. HEENT: Head is normocephalic. Pupils are equal, round. Sclerae anicteric. Mucous membranes of the mouth are moist. Neck supple. No JVD or thyromegaly LUNGS: Respirations even and unlabored. Lungs with a few crackles at the bases. HEART: Irregular rate and rhythm. S1 and S2 heard. Systolic ejection murmur 2/6. EXTREMITIES: Normal range of motion. No clubbing or cyanosis. Peripheral p ulses intact. No lower extremity edema ASSESSMENT: Generalized fatigue x 1 month Shortness of breath Paroxysmal atrial fibrillation with controlled ventricular rate Mild exacerbation of chronic heart failure with preserved ejection fraction Abnormal troponin, acute coronary syndrome ruled out, Type II AR Elevated lactic acid Hypertension Hyperlipidemia PLAN: Continue current cardiac medications Patient awaiting meetings with palliative care and hospice We will follow on an as needed basis. Please call with questions or concerns Nurse practitioner note has been reviewed by physician. Signing provider agrees with the documented findings, assessment, and plan of care. Objective - Vital Signs Vital signs: Vital Signs Temp 97.5 F L 03/27/22 07:51 Pulse 64 03/27/22 07:51 Resp 16 03/27/22 07:51 BP 115/77 03/27/22 07:51 Pulse Ox 97 03/27/22 07:51 FiO2 Intake & Output 03/26/22 03/27/22 03/27/22 18:59 06:59 18:59 Intake Total 180 Output Total 750 200 200 Balance -570 -200 -200 Intake: Oral 180 Output: Urine 750 200 200 Other: Voiding Method Bedside Commode Bedside Commode Bedside Commode Diaper Diaper Diaper # Voids 1 # Bowel Movements 1 1 - Labs CBC & Chem 7: 03/26/22 07:23 03/26/22 07:23 Labs: Abnormal Lab Results - Last 24 Hours (Table) 03/26/22 Range/Units 07:23 Hemoglobin A1c 6.6 H (0.0-6.0) %
[2022-03-27] MEDS ORDERED: DOCUSATE 100 MG CAP PO SCH (10:45)
--- NOTE | 2022-03-27 10:53 | P.CONS ---
History of Present Illness - Reason for Consult Consult date: 03/27/22 Goals of care Requesting physician: Brice Ragland - Chief Complaint Shortness of breath - History of Present Illness The patient is a 86-year-old female with a past medical history significant for CHF, paroxysmal atrial fibrillation - on Eliquis, hypertension hyperlipidemia, and chronic back pain. She presented to the emergency department on 03/24/22 with concerns of chest pain, shortness of breath, and palpitations. Family at the bedside report the patient had recently been evaluated by her operations supervisor and was found to be in atrial fibrillation and have changed her cardiac medications. The patient denied any recent fevers, chills, cough, nausea or vomiting. Labs were completed and reviewed. CBC unremarkable. BMP showing prerenal azotemia with BUN is 69, and creatinine of 1.17 with GFR 42. Hyperglycemia with glucose of 284, and elevated lactic acid of 3.8. Troponin also elevated at 0.085 and pro-BMP of 1710. Influenza A, influenza B, and Covid PCR were negative. Chest x-ray shows COPD. No acute cardiopulmonary process. Echocardiogram shows a EF of 55-60% and mild to moderate mitral and mild aortic regurgitation. Cardiology has been following and is treating her medically. No interventions planned at this time. Review of Systems Constitutional: Reports weight loss, Denies chills, Denies fever Ears, nose, mouth and throat: Reports sore throat Cardiovascular: Reports chest pain, Reports palpitations, Reports shortness of breath Respiratory: Reports cough Gastrointestinal: Denies nausea, Denies vomiting Past Medical History Past Medical History: Cancer, Chest Pain / Angina, Hyperlipidemia, Hypertension, Thyroid Disorder Additional Past Medical History / Comment(s): "IRREG HEART BEAT IN PAST", "EARLY SIGNS OF DEMENTIA",SKIN CANCER-HAD A SKIN GRAFT BY RT EYE, CHRONIC BACK PAIN,SCIATICA. 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 x3 c-sections, xe bladder suspension sx Past Anesthesia/Blood Transfusion Reactions: No Reported Reaction Past Psychological History: Anxiety, Depression Smoking Status: Never smoker Past Alcohol Use History: None Reported Past Drug Use History: None Reported - Past Family History Mother Family Medical History: Cancer Additional Family Medical History / Comment(s): breast cancer Father Family Medical History: Congestive Heart Failure (CHF) Additional Family Medical History / Comment(s): lived to be 101 Brother(s) Family Medical History: Cancer Additional Family Medical History / Comment(s): brain cancer Medications and Allergies Home Medications Medication Instructions Recorded Confirmed Type Pravastatin Sodium [Pravachol] 10 mg PO HS@199912/08/16 03/24/22 History Amiodarone [Cordarone] 200 mg PO BID@0800,199903/24/22 03/24/22 History Apixaban [Eliquis] 2.5 mg PO BID@0800,199903/24/22 03/24/22 History Cholecalciferol [Vitamin D3 (25 50 mcg PO HS@0800 03/24/22 03/24/22 History Mcg = 1000 Iu)] Furosemide [Lasix] 40 mg PO DAILY@0800 03/24/22 03/24/22 History Losartan [Cozaar] 25 mg PO HS@199903/24/22 03/24/22 History Venlafaxine HCl ER [Effexor Xr] 37.5 mg PO DAILY@0800 03/24/22 03/24/22 History carvediloL [Coreg] 3.125 mg PO BID@0800,199903/24/22 03/24/22 History traZODone HCL [Desyrel] 50 mg PO HS@199903/24/22 03/24/22 History Allergies Allergy/AdvReac Type Severity Reaction Status Date / Time No Known Allergies Allergy Verified 03/24/22 10:31 Physical Exam Vitals: Vital Signs Temp Pulse Resp BP Pulse Ox 03/27/22 09:49 97 03/27/22 07:51 97.5 F L 64 16 115/77 97 03/27/22 03:34 98.6 F 68 16 106/70 97 03/27/22 00:00 82 20 107/61 98 03/26/22 20:00 98.0 F 78 19 118/75 97 03/26/22 15:58 68 16 103/61 98 03/26/22 12:00 69 16 103/58 97 Intake and Output 03/26/22 03/27/2203/27/23 22:59 06:59 14:59 Output Total 550 200 Balance -550 -200 Output: Urine 550 200 Other: Voiding Method Bedside Commode Bedside Commode Bedside Commode Diaper Diaper Diaper # Voids 1 # Bowel Movements 1 1 General: Well developed, well nourished. No acute distress. Chronically ill appearing HEENT: Head is atraumatic, normocephalic. Lungs: Respirations even and nonlabored. Abdomen/GI: Soft. No guarding, rigidity, or abdominal tenderness. : No suprapubic tenderness. Musculoskeletal/ Extremities: No gross atrophy or contractures. + generalized weakness Skin: Warm and dry, some skin breakdown to the left ear Neurologic: Awake, alert and oriented times 3. CN II-XII grossly intact. No focal deficits. Psychiatric: Appropriate mood and affect. Results CBC & Chem 7: 03/26/22 07:23 03/26/22 07:23 Labs: Abnormal Lab Results - Last 24 Hours (Table) 03/26/22 Range/Units 07:23 Hemoglobin A1c 6.6 H (0.0-6.0) % Chest x-ray: report reviewed Assessment and Plan Assessment: Social * Occupation - retired * Marital status - * Children/grandchildren - * Residence - house * Who do you reside with - who is 91 years old. 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 * Beliefs a source of comfort and strength - yes Functional Assessment * Able to walk independently - yes * Assistive devices - walker * Able to use the bathroom independently - yes * Continent - incontinent at times * Require assistance bathing- yes * Able to feed self - yes * Who prepares meals - family * Able to clean house/do laundry - family * Transportation -family provides transportation * Able to shop -family shops * Who manages medications - daughter in law, Carole, manages medications * Who manages finances - patient's Psychological/Emotional * Dementia present - mild memory impairment * Insight and judgment - not intact * Depression - no * Suicidal thoughts - no * Good support system - family * Patients goals - optimize functionality * Frequent hospitalizations - no * Desire to keep coming back to the hospital for treatment - yes Symptoms * Pain - sores in mouth, left earache, continue oral elixir * Fatigue - generalized weakness and fatigue, continue PT OT * SOB - no * Insomnia - yes, continue trazodone * N/V - occasional nausea, continue Compazine * Anxiety - none * Depression - mild, continue Effexor * Confusion - some mild memory impairment * Agitation - none * Hallucinations - no * Appetite/weight loss - recent decreased appetite with weight loss secondary to painful worse in oral cavity, add Magic cup, ice cream, or sherbet reached. Ensure supplement 3 times a day * Dysphagia - no * Constipation - chronic constipation, continue MiraLAX, add Colace, LBM 03/27 * Incontinence - occasional, wears briefs * Itch - none * Cough - none Plan: Summary/Goals - Met with the patient, her daughter Ewa, and her granddaughter. Information regarding Palliative care and hospice philosophies and services provided. The patient and her family voiced that their goal is to get her an stronger. The patient would like to return to the hospital for treatment if she has another episode. They would like the option of receiving aggressive treatment if indicated. They are not open to hospice or not at this point. They are hoping to receive palliative care at home and then transition to hospice by the when the patient's condition declines. The patient lives in a house with her was 91 years old. The family takes turns providing 18/09 care. The patient is not willing to go to a rehab facility. The family is requesting an that the patient be discharged home with supportive services including home health care, with a visiting nurse, health education aide, PT/OT, and palliative care. Having also requesting a social work referral to assist in finding community resources. The patient's oral cavity is red and sore due to poor oral hygiene. The patient's family states that she has dentures but does not clean them leaving to sores. As a result the patient has decreased oral intake due to pain. The patient has an oral elixir ordered currently. Ice cream, sherbet, oriented Magic cup and a ensure supplement was requested on each tray. The patient's granddaughter reports that the patient does not currently have a PCP. The patient's daughter, Ewa, states that the patient has an appointment on Sunday with a PA. Patient's granddaughter would like Dr. Gonzales to be the patient's PCP. She is attempting to make an appointment with his office. Patient director of casework services is aware and is process of coordinating services needed upon discharge. Recommendations - home with palliative care, PT/OT, social work, and C Advanced Directives - none on file Code Status - DO NOT RESUSCITATE with instructions, okay with medications and cardioversion Thank you for this consultation Dorothy Vigil [facility] [id number] Email: [email or web address]
--- NOTE | 2022-03-27 11:18 | P.DS ---
Providers Date of admission: 03/24/22 12:03 Expected date of discharge: 03/27/22 Attending physician: Hansel Culver MD Consults: 03/24/22 12:02 Consult Physician Urgent Consulting Provider: [facility] Consult Reason/Comments: acute chest pain Do you want consulting provider notified?: Yes 03/26/22 09:58 Consult to Palliative Care Routine Consulting Provider: Dorothy Vigil Consult Reason/Comments: family at bedside would like to discuss hospice vs palliative care Do you want consulting provider notified?: Yes Primary care physician: Toro Danyel [facility] Course: Discharge Diagnosis: Chest pain, shortness of breath, and palpitations. Acute coronary event was ruled out. Cardiology decreased amiodarone to 200 mg daily, Elevated troponins, likely resulting from a type II myocardial infarction secondary to reports of atrial fibrillation with RVR Paroxysmal atrial fibrillation, currently maintaining controlled ventricular rate Chronic systolic heart failure with previously known EF of 20-25 % and repeat echocardiogram revealing improved EF of 55-60% Hypertension Hyperlipidemia Lactic acidosis, resolved. Likely secondary to episode of atrial fibrillation with RVR, resolved after a one-time 500 mL bolus of 0.9% normal saline. Prerenal azotemia Hypernatremia Hospice and palliative care consulted and patient discharged home on palliative care per decisions made between patient and family. Hospital Course: Patient is a very pleasant 86-year-old female with a past medical history of systolic heart failure with previously known EF of 20-25 %, paroxysmal atrial fibrillation on anticoagulation with Eliquis, hypertension, and hyperlipidemia. She presented to the emergency department with a chief complaint of chest pain and shortness of breath. Family at bedside providing history. Family report patient has been overall not feeling well experiencing dizziness/lightheadedness, shortness of breath, fatigue, lethargy, and palpitations for approximately 3 weeks. They state that she has been under evaluation by her theology teacher, Dr. Moore and was found to be back in atrial fibrillation and that he changed up her medications discontinuing digoxin and starting her on amiodarone on 03/22/22. Patient and family at bedside reports this morning patient was having increased shortness of breath accompanied by pain to her midsternal chest and palpitations. Patient described this pain as a pressure and denied any radiation but also reports this has subsided. Patient and family at bedside denies any recent fevers, chills, diaphoresis, cough or congestion, nausea or vomiting, or experiencing any numbness/tingling/weakness/swelling in her extremities. She underwent full evaluation in the emergency department. EKG completed revealing atrial fibrillation with a controlled ventricular rate at 93 bpm with nonspecific T- wave changes/flattening of ST depression in leads 1 and aVL. Chest x-ray reviewed showing no signs of acute cardiopulmonary process, no vascular congestion noted. Labs were completed and reviewed. CBC unremarkable. BMP showing prerenal azotemia with BUN is 69, and creatinine of 1.17 with GFR 42. Hyperglycemia with glucose of 284, and elevated lactic acid of 3.8. Troponin also elevated at 0.085 and pro-BMP of 1710. Influenza A, influenza B, and Covid PCR were negative. Patient's presenting complaints and results discussed thoroughly with the ED physician. Patient was accepted for admission under our services with consult to cardiology. Troponins trended overnight and remained elevated but flat at 0.085, 0.070, and 0.089. Lactic acidosis resolved status post 500 mL bolus was completed. Echocardiogram report reviewed, showing a preserved EF of 55-60%, mild to moderate mitral regurgitation, mild aortic and tricuspid regurgitation, and mild pulmonary hypertension. Cardiology decreased amiodarone to 200 mg daily. Patient declined interventional treatment at this time and cardiology therefore recommending continued medical management. Patient is medically stable at this time. She is to continue with cardiac medication regimen including Aspirin, Eliquis, furosemide, pravastatin, losartan, carvedilol, and amiodarone. Patient discharged home on palliative care per her request and request of family. Physical exam: Patient seen and fully evaluated at bedside this morning. She reported a single episode of wax from left ear otherwise denies having any complaints including headache, lightheadedness, dizziness, chest pain, palpitations, shortness of breath, or any other complaints. Patient reports she is looking forward to discharge home with her . Arrangements have been set up for palliative care. Vital signs reviewed and stable. General: Nontoxic, mild distress and appears stated age. Derm: Skin warm and dry, normal coloration for ethnicity. Patient flushed. Poor skin turgor. Head: Atraumatic, normocephalic and symmetric. Eyes: EOMs intact, no lid lag, and anicteric sclera Mouth: no lip lesions, mucus membranes dry, patient does have areas of irritation/blisters in mouth from dentures. Cardiovascular: Irregularly irregular rhythm with systolic murmur, positive posterior tibial pulses bilaterally, and cap refill < 2 seconds. Lungs: Respirations even, regular, and unlabored on room air. Lungs CTA bilaterally, no rhonchi, no rales, no wheezing, and no accessory muscle usage. Abdominal: soft, nontender to palpation, no guarding, no appreciable organomegaly Ext: ROM intact. No gross muscle atrophy, no edema, no contractures Neuro: Speech clear, face symmetrical and CN II-XII grossly intact with no noted focal neuro deficits Psych: Alert and oriented to person, place, time, and situation. Appropriate and pleasant affect. A total of 37 minutes of time were spent preparing this complex discharge edmonds mmary. Pt was discharged on 03/27/22 at 11:15 AM. Patient Condition at Discharge: Stable Plan - Discharge Summary Discharge Rx Participant: No New Discharge Prescriptions: New Sucralfate [Carafate] 1 gm PO ACHS 30 Days #120 g Continue Pravastatin Sodium [Pravachol] 10 mg PO HS@1999 Apixaban [Eliquis] 2.5 mg PO BID@0800,1999 carvediloL [Coreg] 3.125 mg PO BID@799,1999 Venlafaxine HCl ER [Effexor XR] 37.5 mg PO DAILY@0800 Cholecalciferol [Vitamin D3 (25 Mcg = 1000 Iu)] 50 mcg PO HS@0800 Losartan [Cozaar] 25 mg PO HS@1999 traZODone HCL [Desyrel] 50 mg PO HS@1999 Changed Amiodarone [Cordarone] 200 mg PO DAILY #0 Furosemide [Lasix] 20 mg PO DAILY@0800 #0 Discharge Medication List Pravastatin Sodium [Pravachol] 10 mg PO HS@199912/08/16 [History] Apixaban [Eliquis] 2.5 mg PO BID@0800,199903/24/22 [History] Cholecalciferol [Vitamin D3 (25 Mcg = 1000 Iu)] 50 mcg PO HS@0800 03/24/22 [History] Losartan [Cozaar] 25 mg PO HS@199903/24/22 [History] Venlafaxine HCl ER [Effexor XR] 37.5 mg PO DAILY@0800 03/24/22 [History] carvediloL [Coreg] 3.125 mg PO BID@08,199903/24/22 [History] traZODone HCL [Desyrel] 50 mg PO HS@199903/24/22 [History] Amiodarone [Cordarone] 200 mg PO DAILY #0 03/27/22 [Rx] Furosemide [Lasix] 20 mg PO DAILY@0800 #0 03/27/22 [Rx] Sucralfate [Carafate] 1 gm PO ACHS 30 Days #120 g 03/27/22 [Rx] Follow up Appointment(s)/Referral(s): Eyal Gonzales MD [STAFF PHYSICIAN] - 03/28/22 1:45 pm ([place] location) [facility], [NON-STAFF] - As Needed Care,[facility] [NON-STAFF] - As Needed Patient Instructions/Handouts: A-fib (Atrial Fibrillation) (DC) Activity/Diet/Wound Care/Special Instructions: Activity: As tolerated. Take breaks as needed. Will require a bedside commode and assistance with ambulation at all times. Diet: Heart healthy and carb consistent diet. Avoid salts, or foods with hidden salts such as canned or boxed foods and frozen dinners. Extra salt makes your heart work harder and traps the fluid in your body for longer. Special Instructions: Take all of your medications as directed and remember to keep all of your doctor's appointments and follow-up as needed. Prescription for Magic mouthwash (Maalox, lidocaine, Benadryl, nystatin mixture) was sent down to our pharmacy. It does not show up on medication med rec as this prescription had to be called in due to customized ingredients. It is av ailable at [facility]. Thank you for allowing us to participate in your care, it was truly a pleasure having you for our patient!!! Discharge/Stand Alone Forms: Help In The Home Discharge Disposition: HOME WITH HOME HEALTH SERVICES
[2022-03-27 13:37] VITALS: BP 101/76; PULSE 65; TEMP 98.8
== END 2022-03-27 14:35 | disposition home health service (06) | DRG 280 ==
LOC: SUPCPDRO 09:35 → EC 09:35 → 3SCARD 12:03 → 4SSUR 03-27 03:28 → OBSVTOIN 03-27 09:18
PROVIDERS: ADMIT Internal Medicine; ATTEND Internal Medicine
DX: I48.0 Paroxysmal atrial fibrillation (principal); I21.A1 Myocardial infarction type 2; I50.33 Acute on chronic diastolic (congestive) heart failure; E87.0 Hyperosmolality and hypernatremia; I13.0 Hypertensive heart and chronic kidney disease with heart failure and stage 1 through stage 4 chronic kidney disease, or unspecified chronic kidney disease; F03.918 Unspecified dementia, unspecified severity, with other behavioral disturbance; E87.20 Acidosis, unspecified; Z66 Do not resuscitate; Z51.5 Encounter for palliative care; Z20.822 Contact with and (suspected) exposure to COVID-19; G89.29 Other chronic pain; I08.1 Rheumatic disorders of both mitral and tricuspid valves; I27.20 Pulmonary hypertension, unspecified; N18.9 Chronic kidney disease, unspecified; I08.3 Combined rheumatic disorders of mitral, aortic and tricuspid valves; E78.5 Hyperlipidemia, unspecified; R73.9 Hyperglycemia, unspecified; G47.00 Insomnia, unspecified; K59.09 Other constipation; R32 Unspecified urinary incontinence; Z79.01 Long term (current) use of anticoagulants; Z79.899 Other long term (current) drug therapy; Z90.710 Acquired absence of both cervix and uterus; Z94.9 Transplanted organ and tissue status, unspecified
CPT/HCPCS: 36415; 71046; 80048; 80053; 81003; 83036; 83605; 83735; 83880; 84484; 85025; 85027; 85610; 85730; 87502; 87635; 93005; 93306; 94640; 94760; 96374; 99285